=== PATIENT | female | born 1935 | race Caucasian/White ===

== ENCOUNTER 2016-09-16 09:30 | Emergency (ER) | payer MEDICARE, OTHER ==
--- NOTE | 2016-09-16 10:47 | ER Document Report ---
ED Medical Screen (RME) - General Chief Complaint: Anxiety Stated Complaint: POSSIBLE ANXIETY Time seen by provider: 10:46 Mode of Arrival: Ambulatory Information source: Patient Notes: 80-year-old female with a history of COPD is complaining of dry mouth, can't sit still, pain in both hands and feet, trouble breathing for one week. Her daughter dropped her off in the emergency room and went to work. The patient lives alone. PCP is Dr. Weinberg. Patient is unable to really explain why she is here or what's wrong with her. She thinks she might be anxious. She has a bag full medicine with her. TRAVEL OUTSIDE OF THE [place] IN LAST 30 DAYS: No - Related Data Allergies/Adverse Reactions: No Known Allergies Allergy (Verified 09/16/16 09:37) Past Medical History - Past Medical History Cardiac Medical History: Reports: Hx Coronary Artery Disease, Hx Hypercholesterolemia, Hx Hypertension, Hx Peripheral Vascular Disease Denies: Hx Heart Attack Pulmonary Medical History: Reports: Hx Asthma, Hx Bronchitis, Hx COPD, Hx Pneumonia Denies: Hx Tuberculosis Neurological Medical History: Reports: Hx Cerebrovascular Accident Endocrine Medical History: Denies: Hx Diabetes Mellitus Type 1, Hx Diabetes Mellitus Type 2 Renal/ Medical History: Reports: Hx Kidney Stones. Denies: Hx Peritoneal Dialysis GI Medical History: Reports: Hx Gastroesophageal Reflux Disease, Hx Irritable Bowel Musculoskeltal Medical History: Reports Hx Arthritis Psychiatric Medical History: Reports: Hx Depression Past Surgical History: Reports: Hx Appendectomy, Hx Cholecystectomy. Denies: Hx Pacemaker - Immunizations Hx Diphtheria, Pertussis, Tetanus Vaccination: No Physical Exam - Vital signs Vitals: Temp Pulse Resp BP Pulse Ox 97.4 F 49 L 16 147/55 H 96 09/16/16 09:39 09/16/16 09:39 09/16/16 09:39 09/16/16 09:39 09/16/16 09:39 Course - Vital Signs Vital signs: Temp Pulse Resp BP Pulse Ox 97.4 F 49 L 16 147/55 H 96 09/16/16 09:39 09/16/16 09:39 09/16/16 09:39 09/16/16 09:39 09/16/16 09:39 Doctor's Discharge - Discharge Instructions: Anxiety ([facility])
[2016-09-16 11:59] LABS: ABSOLUTE EOSINOPHILS # (AUTO) 0.2 10^3/uL (0.0-0.6); ABSOLUTE LYMPHOCYTES (AUTO) 1.6 10^3/uL (0.5-4.7); ABSOLUTE MONOCYTES (AUTO) 0.5 10^3/uL (0.1-1.4); BASOPHILS % (AUTO) 0.6 % (0-2); EOSINOPHILS % (AUTO) 3.7 % (0-6); HEMATOCRIT 40.2 % (36.0-47.0); HEMOGLOBIN 13.2 g/dL (12.0-15.5); HGB HCT DIFFERENCE -0.6; LYMPHOCYTES % (AUTO) 25.4 % (13-45); MEAN CORPUSCULAR HEMOGLOBIN 29.5 pg (27.0-33.4); MEAN CORPUSCULAR HGB CONC 32.9 g/dL (32.0-36.0); MEAN CORPUSCULAR VOLUME 90 fl (80-97); RED BLOOD COUNT 4.48 10^6/uL (3.72-5.28); RED CELL DISTRIBUTION WIDTH 14.5 % (11.5-14.0); SEGMENTED NEUTROPHILS % (AUTO) 62.3 % (42-78); WHITE BLOOD COUNT 6.4 10^3/uL (4.0-10.5)
[2016-09-16 12:09] LABS: APPEARANCE,URINE CLEAR; BILIRUBIN,URINE NEGATIVE (NEGATIVE); GLUCOSE, URINE NEGATIVE (NEGATIVE); KETONES,URINE NEGATIVE (NEGATIVE); LEUKOCYTE ESTERASE,URINE NEGATIVE (NEGATIVE); NITRITE,URINE NEGATIVE (NEGATIVE); PROTEIN,URINE NEGATIVE (NEGATIVE); URINE SPECIFIC GRAVITY 1.011; UROBILINOGEN,URINE NEGATIVE mg/dL (<2.0)
[2016-09-16 12:17] LABS: ALANINE AMINOTRANSFERASE 23 U/L (9-52); ALBUMIN 4.7 g/dL (3.5-5.0); ALCOHOL < 10 mg/dL (NONE DETECTED); ALKALINE PHOSPHATASE 92 U/L (38-126); ANION GAP 16 (5-19); ASPARTATE AMINO TRANSFERASE 21 U/L (14-36); BILIRUBIN,DIRECT 0.4 mg/dL (0.0-0.4); BILIRUBIN,TOTAL 0.9 mg/dL (0.2-1.3); BLOOD UREA NITROGEN 38 mg/dL (7-20); CARBON DIOXIDE 27 mmol/L (22-30); CHLORIDE 95 mmol/L (98-107); CREATINE KINASE 111 U/L (30-135); CREATININE RESULT 2.39 mg/dL (0.52-1.25); GLUCOSE 108 mg/dL (75-110); MAGNESIUM 1.8 mg/dL (1.6-2.3); TOTAL PROTEIN 8.1 g/dL (6.3-8.2)
[2016-09-16 12:24] LABS: URINE BARBITURATES SCREEN NEGATIVE; URINE METHADONE SCREEN NEGATIVE; URINE OPIATES LOW UNCONFIRMED POSITIVE; URINE PHENCYCLIDINE SCREEN NEGATIVE
[2016-09-16 12:44] LABS: TROPONIN I < 0.012 ng/mL
--- NOTE | 2016-09-16 13:46 | ER Document Report ---
ED General - General Mode of Arrival: Ambulatory Information source: Patient TRAVEL OUTSIDE OF THE [place] IN LAST 30 DAYS: No - HPI Patient complains to provider of: "Having trouble living" Onset: Other - few days ago Associated symptoms: Other - see notes above <LISA FALK - Last Filed: 09/16/16 14:15> <CHARLY GRIMM - Last Filed: 10/05/16 15:54> - General Chief Complaint: Anxiety Stated Complaint: POSSIBLE ANXIETY Notes: 80 year old female with history of anxiety and depression presents to the ED complaining that she feels like "something is terribly wrong" which stated earlier this week. Patient reports that she has been "having trouble living" and "feels like dying". Patient has brought her medications to the ED and has 5 bottles of Ativan, 2 of Metoprolol, 2 of Symbalta, 1 of Xanax, 1 of Ambien, 1 of [place], 1 of amitriptyline, and 1 of hydralazine Patient states that she has been taking her medications PRN and tells her primary care provider that they do not help when attending appointments. Patient reports that she doesn't take her pills to her primary care provider, and that she is prescribed new medication when telling them that her current medications are not working. Patient reports that she doesn't take her medications regularly because she is having trouble organizing them and is scared. Patient does state that she takes Ambien and hydralazine daily. (LISA FALK) - Related Data Allergies/Adverse Reactions: No Known Allergies Allergy (Verified 09/16/16 09:37) Past Medical History - General Information source: Patient - Social History Smoking Status: Former Smoker Chew tobacco use (# tins/day): No Drug Abuse: None Family History: Reviewed & Not Pertinent Patient has suicidal ideation: No Patient has homicidal ideation: No - Past Medical History Cardiac Medical History: Reports: Hx Coronary Artery Disease, Hx Hypercholesterolemia, Hx Hypertension, Hx Peripheral Vascular Disease Pulmonary Medical History: Reports: Hx Asthma, Hx Bronchitis, Hx COPD, Hx Pneumonia Neurological Medical History: Reports: Hx Cerebrovascular Accident Renal/ Medical History: Reports: Hx Kidney Stones GI Medical History: Reports: Hx Gastroesophageal Reflux Disease, Hx Irritable Bowel Musculoskeltal Medical History: Reports Hx Arthritis Psychiatric Medical History: Reports: Hx Depression Past Surgical History: Reports: Hx Appendectomy, Hx Cholecystectomy. Denies: Hx Pacemaker - Immunizations Hx Diphtheria, Pertussis, Tetanus Vaccination: No Hx Pneumococcal Vaccination: 05/28/09 <LISA FALK - Last Filed: 09/16/16 14:15> Review of Systems - Review of Systems Constitutional: No symptoms reported EENT: No symptoms reported Cardiovascular: No symptoms reported Respiratory: No symptoms reported Gastrointestinal: No symptoms reported Genitourinary: No symptoms reported Female Genitourinary: No symptoms reported Musculoskeletal: No symptoms reported Skin: No symptoms reported Hematologic/Lymphatic: No symptoms reported Neurological/Psychological: See HPI, Confusion -: Yes All other systems reviewed and negative <LISA FALK - Last Filed: 09/16/16 14:15> Physical Exam - General General appearance: Alert In distress: None - HEENT Head: Normocephalic, Atraumatic Eyes: Normal Extraocular movements intact: Yes Pupils: PERRL - Respiratory Respiratory status: No respiratory distress Breath sounds: Normal - Cardiovascular Rhythm: Regular Heart sounds: Normal auscultation - Abdominal Inspection: Normal Distension: No distension Tenderness: Nontender - Back Back: Normal - Extremities General upper extremity: Normal inspection, Normal ROM General lower extremity: Normal inspection, Normal ROM - Neurological Neuro grossly intact: Yes Cognition: Normal Orientation: AAOx4 [place] Coma Scale Eye Opening: Spontaneous [place] Coma Scale Verbal: Oriented [place] Coma Scale Motor: Obeys Commands [place] Coma Scale Total: 15 Speech: Normal - Psychological Associated symptoms: Normal affect, Normal mood - Skin Skin Temperature: Warm Skin Moisture: Dry Skin Color: Normal <LISA FALK - Last Filed: 09/16/16 14:15> Course - Laboratory Result Diagrams: 09/16/16 10:56 09/16/16 10:56 <LISA FALK - Last Filed: 09/16/16 14:15> - Laboratory Result Diagrams: 09/16/16 10:56 09/16/16 10:56 <CHARLY GRIMM - Last Filed: 10/05/16 15:54> - Re-evaluation Re-evalutation: 09/16/16 14:58 Patient presents emergency Department anxious. Upon serial assessments talking with the patient and her daughter she has numerous medications at the bedside she has 6 bottles of Ativan bottle of Xanax and Ambien in multiple bottles of Elavil.. She states that for the last week she hasn't taken her medications but once or twice she so overwhelmed with all medication she doesn't know which ones to take is afraid of mixing them. She is of sound mind and judgment negative acute medical screening examination not suicidal or homicidal. After reviewing her medications with her and her daughter there were some numerous medications that were overlapping each other if she were taking them all together she would have some serious respiratory depression and compromised I went through with her daughter and told her which one she should be taking. Gave her low-dose Ativan here which she did very well with recommended she does not take Xanax because its addicting recommend she does not take Ambien. Patient reports falling after taken Ambien multiple times also reports going down stairs in her house to make food not finding until the next morning she is concerned she would've burn the house down. Ambien is notorious for all of these medications and in my opinion should not be taken an elderly population. I told her and her daughter that she's not to take them any longer. The primary care physician's take her medications with her and discussed reasons for ED return sooner (CHARLY GRIMM) - Vital Signs Vital signs: Temp Pulse Resp BP Pulse Ox 97.4 F 54 L 14 159/75 H 98 09/16/16 09:39 09/16/16 12:55 09/16/16 14:02 09/16/16 14:02 09/16/16 14:02 - Laboratory Laboratory results interpreted by me: 09/16/16 09/16/16 09/16/16 10:56 10:56 11:24 RDW 14.5 H Chloride 95 L BUN 38 H Creatinine 2.39 H Est GFR ( Amer) 24 L Est GFR (Non-Af Amer) 20 L POC Glucose 111 H Discharge <LISA FALK - Last Filed: 09/16/16 14:15> <CHARLY GRIMM - Last Filed: 10/05/16 15:54> - Discharge Clinical Impression: Anxiety Condition: Stable Disposition: HOME, SELF-CARE Instructions: Anxiety ([facility]) Additional Instructions: Anxiety The physician feels that some of your health problems are being caused by anxiety. Anxiety affects your health in many ways. Anxiety alone can cause palpitations, sweats, chest pains, abdominal pains, shortness of breath, and headaches. It contributes to ulcer disease, high blood pressure, irritable bowel syndrome, and has been shown to cause flare-ups of many other diseases. Anxiety is not a simple disorder to treat. If the anxiety is due to recent life stresses, you may simply need time to "work through" the changes. If the anxiety is due to an underlying unhappiness with yourself or due to psychiatric disturbance, professional help will be needed. Your physician can refer you for further help if needed. Anti-anxiety medication is occasionally given if the stress is acute or if you are having trouble sleeping. Chronic or frequent use of these medications is not a good idea because the body becomes reliant on it, preventing you from dealing with life's normal stresses. follow up with primary care physician in 2-3 days return for increasing worsening or new symptoms Marye Attestation: 10/05/16 15:53 i personally performed the services described in the documentation, reviewed the documentation recorded by the scribe in my presence and it accurately and completely records my words and actions (CHARLY GRIMM) Scribe Documentation - Scribe Written by Wesley:: Wesley Danielle, 09/16/2016 1425 acting as scribe for :: Aly <LISA FALK - Last Filed: 09/16/16 14:15>
[2016-09-16 15:36] VITALS: BP 159/75
--- NOTE | 2016-09-17 16:53 | EKG REPORT ---
SEVERITY:- ABNORMAL ECG - SINUS RHYTHM NONSPECIFIC T ABNORMALITIES, ANT-LAT LEADS : Confirmed by: Poppy Tomlin MD 17-Sep-2016 16:53:13
== END 2016-09-16 15:40 | disposition home or self-care (01) ==
LOC: ER 09:30
DX: F41.9 Anxiety disorder, unspecified (principal); F32.9 Major depressive disorder, single episode, unspecified; Z79.899 Other long term (current) drug therapy; Z87.891 Personal history of nicotine dependence
CPT/HCPCS: 36415; 70450; 71020; 80053; 80307; 81001; 82550; 82553; 82962; 83735; 84484; 85025; 87086; 93005; 93010; 99284

== ENCOUNTER → 2016-09-19 | Outpatient (CLI) | payer MEDICARE, OTHER | LOC: RAD 09:15 | PROVIDERS: ATTEND Family Medicine | DX: R16.0 Hepatomegaly, not elsewhere classified (principal) | CPT/HCPCS: 74176 ==

== ENCOUNTER → 2016-12-08 | Outpatient (CLI) | payer MEDICARE, OTHER ==
--- NOTE | 2016-12-08 10:31 | RADIOLOGY REPORT (SQ) ---
EXAM DESCRIPTION: CT CHEST WITHOUT COMPLETED DATE/TIME: 12/08/2016 10:07 am REASON FOR STUDY: HEMOPTYSIS R04.2 HEMOPTYSIS COMPARISON: None. TECHNIQUE: CT scan performed of the chest without intravenous contrast. Images reviewed with lung, soft tissue and bone windows. Reconstructed coronal and sagittal MPR images reviewed. All images st ored on PACS. All CT scanners at this facility use dose modulation, iterative reconstruction, and/or weight based d osing when appropriate to reduce radiation dose to as low as reasonably achievable (ALARA). [facility]: Dose Right [facility]: CareDose [facility]: Dose Right [facility]: Teradose 4D [facility]: [employer] RADIATION DOSE: Up-to-date CT equipment and radiation dose reduction techniques were employed. CTDIv ol: 4.1 mGy. DLP: 164 mGy-cm. mGy. LIMITATIONS: No technical limitations. FINDINGS: LUNGS AND PLEURA: Centrilobular emphysematous changes are present. There is a 6 mm subple ural nodule in the medial aspect of the right upper lobe on image 19 series 4. HILAR AND MEDIASTINAL STRUCTURES: No identified masses or abnormal nodes. No obvious aneurysm. HEART AND VASCULAR STRUCTURES: Aortic and coronary atherosclerosis is present. UPPER ABDOMEN: Intrarenal calcification is seen in the right kidney. A cyst is present on the left k idney. There is a 53 x 31 mm right renal cyst versus paraspinous mass. This is seen on image 67 ser ies 2. THYROID AND OTHER SOFT TISSUES: No masses. No adenopathy. BONES: Mild superior endplate compression changes are present at L1. HARDWARE: None in the chest. OTHER: No other significant findings. IMPRESSION: 1. Pulmonary emphysema as described. 2. There is a 6 mm subpleural nodule in the right upper lobe. 3. There is a possible right paraspinous mass. Consider abdomen CT without and with contrast. TECHNICAL DOCUMENTATION: JOB ID: [id number] Quality ID # [id number]: Final reports with documentation of one or more dose reduction techniques (e.g., Au tomated exposure control, adjustment of the mA and/or kV according to patient size, use of iterative reconstruction technique) 2010 [employer]- All Rights Reserved
== END ==
LOC: RAD 09:39
PROVIDERS: ATTEND Family Medicine
DX: R04.2 Hemoptysis (principal); J43.9 Emphysema, unspecified; R91.1 Solitary pulmonary nodule
CPT/HCPCS: 71250

== ENCOUNTER 2017-06-12 18:05 | Emergency (ER) | payer MEDICARE, OTHER ==
--- NOTE | 2017-06-12 18:48 | ER Document Report ---
ED Medical Screen (RME) - General Chief Complaint: Leg Pain Stated Complaint: LEFT LEG PAIN Time Seen by Provider: 06/12/17 18:42 Mode of Arrival: Wheelchair Information source: Patient Notes: 81 yo female c/o alternating leg pain (points to thighs), since when she fell. c/o pain throughout her body for a long time- and has seen multiple doctors for "pain" and they can't find anything wrong. PMH: HTN, 3rd stage renal disease, COPD,,depression/anxiety. She insisted last night that she wanted to come to the hospital to get xrays of legs and pelvis. Uses cane or walker. She wants to be free of pain and not of cancer, "I'm scared about dying". Her daughter thinks there is some dementia- which is going to be evaluated by dr corrales tomorrow. Non tender femur/tib/fib in PIT. TRAVEL OUTSIDE OF THE [place] IN LAST 30 DAYS: No - Related Data Allergies/Adverse Reactions: No Known Allergies Allergy (Verified 06/12/17 18:09) Past Medical History - Past Medical History Cardiac Medical History: Reports: Hx Coronary Artery Disease, Hx Hypercholesterolemia, Hx Hypertension, Hx Peripheral Vascular Disease Denies: Hx Heart Attack Pulmonary Medical History: Reports: Hx Asthma, Hx Bronchitis, Hx COPD, Hx Pneumonia Denies: Hx Tuberculosis Neurological Medical History: Reports: Hx Cerebrovascular Accident Endocrine Medical History: Denies: Hx Diabetes Mellitus Type 1, Hx Diabetes Mellitus Type 2 Renal/ Medical History: Reports: Hx Kidney Stones. Denies: Hx Peritoneal Dialysis GI Medical History: Reports: Hx Gastroesophageal Reflux Disease, Hx Irritable Bowel Musculoskeltal Medical History: Reports Hx Arthritis Psychiatric Medical History: Reports: Hx Depression Past Surgical History: Reports: Hx Appendectomy, Hx Cholecystectomy. Denies: Hx Pacemaker - Immunizations Hx Diphtheria, Pertussis, Tetanus Vaccination: No Physical Exam - Vital signs Vitals: Pulse BP Pulse Ox 79 207/93 H 96 06/12/17 18:13 06/12/17 18:13 06/12/17 18:13 Course - Vital Signs Vital signs: Temp Pulse Resp BP Pulse Ox 79 207/93 H 96 06/12/17 18:13 06/12/17 18:13 06/12/17 18:13
[2017-06-12 19:47] LABS: ABSOLUTE BASOPHILS # (AUTO) 0.1 10^3/uL (0.0-0.2); ABSOLUTE EOSINOPHILS # (AUTO) 0.1 10^3/uL (0.0-0.6); ABSOLUTE LYMPHOCYTES (AUTO) 1.2 10^3/uL (0.5-4.7); ABSOLUTE MONOCYTES (AUTO) 0.6 10^3/uL (0.1-1.4); ABSOLUTE NEUT (AUTO) 4.8 10^3/uL (1.7-8.2); HEMATOCRIT 42.4 % (36.0-47.0); HEMOGLOBIN 14.3 g/dL (12.0-15.5); LYMPHOCYTES % (AUTO) 17.7 % (13-45); MEAN CORPUSCULAR HEMOGLOBIN 29.9 pg (27.0-33.4); MEAN CORPUSCULAR HGB CONC 33.7 g/dL (32.0-36.0); MEAN CORPUSCULAR VOLUME 89 fl (80-97); MONOCYTES % (AUTO) 9.3 % (3-13); PLATELET COUNT 314 10^3/uL (150-450); RED BLOOD COUNT 4.76 10^6/uL (3.72-5.28); RED CELL DISTRIBUTION WIDTH 13.9 % (11.5-14.0); TOTAL CELLS COUNTED % (AUTO) 100 %; WHITE BLOOD COUNT 6.9 10^3/uL (4.0-10.5)
--- NOTE | 2017-06-12 20:11 | RADIOLOGY REPORT (SQ) ---
EXAM DESCRIPTION: L SPINE WHOLE COMPLETED DATE/TIME: 06/12/2017 7:34 pm REASON FOR STUDY: pelvis pain COMPARISON: None. NUMBER OF VIEWS: Five views including obliques. TECHNIQUE: AP, lateral, oblique, and sacral radiographic images acquired of the lumbar spine. LIMITATIONS: None. FINDINGS: Bones are osteopenic. Mild convex left scoliosis. Mild depression of the superior endpla te of L1. Mild degenerative changes. IMPRESSION: Compression deformity superior endplate L1 of uncertain chronicity. No obvious acute fr acture. TECHNICAL DOCUMENTATION: JOB ID: [id number] [employer]- All Rights Reserved
--- NOTE | 2017-06-12 20:13 | RADIOLOGY REPORT (SQ) ---
EXAM DESCRIPTION: PELVIS AP COMPLETED DATE/TIME: 06/12/2017 7:34 pm REASON FOR STUDY: pelvis pain COMPARISON: None. NUMBER OF VIEWS: One view TECHNIQUE: AP Pelvis LIMITATIONS: None. FINDINGS: Bones are osteopenic. There is an old fracture of the right inferior pubic ramus. No acu te fractures identified. IMPRESSION: No acute findings. TECHNICAL DOCUMENTATION: JOB ID: [id number] [employer]- All Rights Reserved
[2017-06-12 20:15] LABS: ALANINE AMINOTRANSFERASE 24 U/L (9-52); ALBUMIN 4.1 g/dL (3.5-5.0); ALKALINE PHOSPHATASE 155 U/L (38-126); ANION GAP 10 (5-19); ASPARTATE AMINO TRANSFERASE 16 U/L (14-36); BILIRUBIN,DIRECT 0.4 mg/dL (0.0-0.4); BILIRUBIN,TOTAL 0.7 mg/dL (0.2-1.3); BLOOD UREA NITROGEN 13 mg/dL (7-20); CALCIUM 9.8 mg/dL (8.4-10.2); CARBON DIOXIDE 31 mmol/L (22-30); CHLORIDE 97 mmol/L (98-107); GLUCOSE 121 mg/dL (75-110); MAGNESIUM 1.5 mg/dL (1.6-2.3); POTASSIUM 3.7 mmol/L (3.6-5.0); SODIUM 137.9 mmol/L (137-145); TOTAL PROTEIN 6.9 g/dL (6.3-8.2)
--- NOTE | 2017-06-12 20:48 | ER Document Report ---
ED General - General Chief Complaint: Leg Pain Stated Complaint: LEFT LEG PAIN Time Seen by Provider: 06/12/17 18:42 Mode of Arrival: Wheelchair Information source: Patient TRAVEL OUTSIDE OF THE [place] IN LAST 30 DAYS: No - HPI Notes: 81-year-old lady presented today for evaluation of groin pain as well as dysuria and urinary burning. Patient reported that she sustained a mechanical fall approximately around [place]. Patient did not hit her head or had loss of consciousness. Since then patient was ambulatory but complains of pain localized to the bilateral medial aspects of her thighs. Pain is worse with movement as well as changing position, described as achy, severity of symptoms is 6 out of 10. Patient has also been complaining of urinary burning and dysuria. Denies any fevers, chills, back pain, nausea or vomiting. - Related Data Allergies/Adverse Reactions: No Known Allergies Allergy (Verified 06/12/17 18:09) Past Medical History - General Information source: Patient - Social History Smoking Status: Never Smoker Chew tobacco use (# tins/day): No Frequency of alcohol use: None Drug Abuse: None Family History: Reviewed & Not Pertinent Patient has suicidal ideation: No Patient has homicidal ideation: No - Past Medical History Cardiac Medical History: Reports: Hx Coronary Artery Disease, Hx Hypercholesterolemia, Hx Hypertension, Hx Peripheral Vascular Disease Denies: Hx Heart Attack Pulmonary Medical History: Reports: Hx Asthma, Hx Bronchitis, Hx COPD, Hx Pneumonia Denies: Hx Tuberculosis Neurological Medical History: Reports: Hx Cerebrovascular Accident Endocrine Medical History: Denies: Hx Diabetes Mellitus Type 1, Hx Diabetes Mellitus Type 2 Renal/ Medical History: Reports: Hx Kidney Stones. Denies: Hx Peritoneal Dialysis GI Medical History: Reports: Hx Gastroesophageal Reflux Disease, Hx Irritable Bowel Musculoskeltal Medical History: Reports Hx Arthritis Psychiatric Medical History: Reports: Hx Depression Past Surgical History: Reports: Hx Appendectomy, Hx Cholecystectomy. Denies: Hx Pacemaker - Immunizations Hx Diphtheria, Pertussis, Tetanus Vaccination: No Hx Pneumococcal Vaccination: 05/28/09 Review of Systems - Review of Systems Notes: REVIEW OF SYSTEMS: CONSTITUTIONAL: -fevers, -chills EENT: -eye pain, -difficulty swallowing, -nasal congestion CARDIOVASCULAR: -chest pain, -syncope. RESPIRATORY: -cough, -SOB GASTROINTESTINAL: -abdominal pain, -nausea, -vomiting, -diarrhea GENITOURINARY: +dysuria, -hematuria MUSCULOSKELETAL: -back pain, -neck pain, + groin pain SKIN: -rash or skin lesions. HEMATOLOGIC: -easy bruising or bleeding. LYMPHATIC: -swollen, enlarged glands. NEUROLOGICAL: -altered mental status or loss of consciousness, -headache, - neurologic symptoms PSYCHIATRIC: -anxiety, -depression. ALL OTHER SYSTEMS REVIEWED AND NEGATIVE. Physical Exam - Vital signs Vitals: Pulse BP Pulse Ox 79 207/93 H 96 06/12/17 18:13 06/12/17 18:13 06/12/17 18:13 - Notes Notes: Reviewed vital signs and nursing note as charted by RN. CONSTITUTIONAL: Alert and oriented and responds appropriately to questions HEAD: Normocephalic; atraumatic EYES: PERRL; Conjunctivae clear, sclerae non-icteric ENT: normal nose; no rhinorrhea; dry mucous membranes; pharynx without lesions noted NECK: Supple without meningismus; non-tender; no cervical lymphadenopathy, no masses CARD: Regular rate and rhythm; no murmurs, no clicks, no rubs, no gallops; symmetric distal pulses RESP: Normal chest excursion without splinting or tachypnea; breath sounds clear and equal bilaterally ABD/GI: Normal bowel sounds; non-distended; soft, BACK: The back appears normal and is non-tender to palpation EXT: Bilateral lower extremities with dry skin, peeling, no deformity around bilateral hips, patient has no tenderness to palpation of bilateral hip bones, no pain with internal or external rotation of bilateral hips, DP and PT palpable , sensation is present in all the dermatomes of the lower extremities bilaterally SKIN: Normal color for age and race; warm; dry; good turgor; capillary refill < 2 seconds; no acute lesions noted NEURO: .Cranial nerves 3-12 intact. Motor strength 5/5 bilaterally. Sensation intact to touch bilaterally. No pronator drift. Finger to nose intact bilaterally PSYCH: The patient's mood and manner are appropriate. Grooming and personal hygiene are appropriate. Course - Re-evaluation Re-evalutation: 06/13/17 01:23 Patient is here for evaluation of groin pain status post fall since Differential diagnosis includes fracture, hip fracture, acute cystitis, dehydration We will obtain basic lab work including CBC, BMP, urinalysis We will obtain pelvis films Patient had lumbar films ordered from triage, unsure why, patient has no back pain whatsoever Reassess patient Reassessment in 2:30 AM Pelvis films without any acute fracture Lumbar films has mild compression fracture of L1, likely chronic in etiology given the patient has no back pain I discussed the results of imaging with patient and family, they agree with disposition planning Urinalysis with early acute cystitis, given her symptoms of dysuria and frequency will start patient on Macrobid Her groin pain is likely to be secondary to pulled groin or muscle tear, will start patient on muscle relaxers for her symptoms as well as Tylenol Discharge home with close PCP follow-up - Vital Signs Vital signs: Temp Pulse Resp BP Pulse Ox 97.6 F 89 18 128/74 H 96 06/12/17 22:56 06/12/17 22:56 06/12/17 18:51 06/12/17 22:56 06/12/17 22:56 - Laboratory Result Diagrams: 06/12/17 19:08 06/12/17 19:08 Laboratory results interpreted by me: 06/12/17 06/12/17 19:08 21:15 Chloride 97 L Carbon Dioxide 31 H Est GFR ( Amer) 53 L Est GFR (Non-Af Amer) 44 L Glucose 121 H Magnesium 1.5 L Alkaline Phosphatase 155 H Urine Protein 100 H Urine Ketones TRACE H Urine Bilirubin MODERATE H Urine Urobilinogen 2.0 H - Diagnostic Test Radiology reviewed: Pending, Image reviewed Radiology results interpreted by me: 06/12/17 22:38 Diagnostic report text EXAM DESCRIPTION: PELVIS AP COMPLETED DATE/TIME: 06/12/2017 7:34 pm REASON FOR STUDY: pelvis pain COMPARISON: None. NUMBER OF VIEWS: One view TECHNIQUE: AP Pelvis LIMITATIONS: None. FINDINGS: Bones are osteopenic. There is an old fracture of the right inferior pubic ramus. No acute fractures identified. IMPRESSION: No acute findings Discharge - Discharge Clinical Impression: Bilateral groin pain, UTI (urinary tract infection) Condition: Stable Disposition: HOME, SELF-CARE Instructions: Muscle Strain ([facility]), Urinary Tract Infection ([facility]) Additional Instructions: Your x-ray revealed small L1 compression deformity Given the fact that you not have any back pain, low suspicion for new fracture of your back Please take antibiotics as prescribed for urinary tract infection Please take muscle relaxers as well as Tylenol for your groin pain Please follow-up with your primary care physician Prescriptions: Methocarbamol [Robaxin 500 mg Tablet] 500 mg PO TID #30 tablet Nitrofurantoin Monohyd/M-Cryst [Macrobid 100 mg Capsule] 1 tab PO BID #20 capsule Referrals: MARYCRUZ BRANNON MD [Primary Care Provider] - Follow up as needed
[2017-06-12 21:44] LABS: APPEARANCE,URINE SLIGHTLY-CLOUDY; BILIRUBIN,URINE MODERATE (NEGATIVE); COLOR,URINE AMBER; GLUCOSE, URINE NEGATIVE (NEGATIVE); KETONES,URINE TRACE mg/dL (NEGATIVE); LEUKOCYTE ESTERASE,URINE NEGATIVE (NEGATIVE); NITRITE,URINE NEGATIVE (NEGATIVE); PROTEIN,URINE 100 mg/dL (NEGATIVE); URINE SPECIFIC GRAVITY 1.032
[2017-06-12 22:57] VITALS: BP 128/74
== END 2017-06-12 22:56 | disposition home or self-care (01) ==
LOC: ER 18:05
DX: N39.0 Urinary tract infection, site not specified (principal); R10.30 Lower abdominal pain, unspecified; M79.605 Pain in left leg; I25.10 Atherosclerotic heart disease of native coronary artery without angina pectoris; E78.00 Pure hypercholesterolemia, unspecified; I10 Essential (primary) hypertension; J44.9 Chronic obstructive pulmonary disease, unspecified; Z86.73 Personal history of transient ischemic attack (TIA), and cerebral infarction without residual deficits; Z87.442 Personal history of urinary calculi; Z90.49 Acquired absence of other specified parts of digestive tract
CPT/HCPCS: 36415; 51701; 72110; 72170; 80053; 81001; 82550; 82553; 83735; 85025; 87086; 99284

== ENCOUNTER → 2017-07-14 | Outpatient (CLI) | payer MEDICARE, OTHER ==
--- NOTE | 2017-07-14 13:05 | RADIOLOGY REPORT (SQ) ---
EXAM DESCRIPTION: CT CHEST WITHOUT COMPLETED DATE/TIME: 07/14/2017 11:39 am REASON FOR STUDY: SOLITARY PULMONARY NODULE R91.1 SOLITARY PULMONARY NODULE COMPARISON: None. TECHNIQUE: CT scan performed of the chest without intravenous contrast. Images reviewed with lung, soft tissue and bone windows. Reconstructed coronal and sagittal MPR images reviewed. All images st ored on PACS. All CT scanners at this facility use dose modulation, iterative reconstruction, and/or weight based d osing when appropriate to reduce radiation dose to as low as reasonably achievable (ALARA). [facility]: Dose Right [facility]: CareDose [facility]: Dose Right [facility]: Teradose 4D [facility]: Smart [employer] RADIATION DOSE: CT Rad equipment meets quality standard of care and radiation dose reduction techniq ues were employed. CTDIvol: 6.0 mGy. DLP: 244 mGy-cm. mGy. LIMITATIONS: No technical limitations. FINDINGS: LUNGS AND PLEURA: There is evidence of centrilobular emphysema. Fibrotic scarring in apic es. Stable 5 mm pleural-based pulmonary nodule medial right upper lobe unchanged (image number 9/ series 4.) HILAR AND MEDIASTINAL STRUCTURES: No identified masses or abnormal nodes. No obvious aneurysm. HEART AND VASCULAR STRUCTURES: Atherosclerotic coronary artery calcification. UPPER ABDOMEN: There is evidence of nonobstructing calculus upper pole right kidney. Renovascular ca lcification right kidney. The right kidney is displaced by right paraspinal mass. Cortical cyst upp er pole left kidney unchanged. Hiatal hernia. THYROID AND OTHER SOFT TISSUES: No abnormality seen. BONES: No significant finding. HARDWARE: None in the chest. OTHER: There is again evidence of a prominent right paraspinal mass. Considering scalloped erosive c hanges of the adjacent vertebra, neuroforaminal widening,, and changes posterior elements of L2 on th e right,follow-up with MRI of lumbar spine could be useful to exclude a neuroforaminal mass or schwan noma. IMPRESSION: 1. Stable pleural-based right upper lobe pulmonary nodule unchanged from 12/09/2015. Ac cording to the Fleischner criteria for follow-up of incidental pulmonary nodules 2017, considering th e size of the pulmonary nodule follow-up in 1 year is optional. 2. Prominent right paraspinal mass at the L2 level. Consider MRI lumbar spine to exclude schwannoma. TECHNICAL DOCUMENTATION: JOB ID: [id number] [facility] [place] Quality ID # [id number]: Final reports with documentation of one or more dose reduction techniques (e.g., Au tomated exposure control, adjustment of the mA and/or kV according to patient size, use of iterative reconstruction technique) 2010 [employer]- All Rights Reserved
== END ==
LOC: RAD 11:26
PROVIDERS: ATTEND Family Medicine
DX: R91.1 Solitary pulmonary nodule (principal)
CPT/HCPCS: 71250

== ENCOUNTER 2018-01-08 11:23 | Emergency (ER) | payer MEDICARE ==
--- NOTE | 2018-01-08 14:20 | ER Document Report ---
ED Medical Screen (RME) - General Chief Complaint: Altered Mental Status Stated Complaint: ALTERED MENTAL STATUS Time Seen by Provider: 01/08/18 14:12 TRAVEL OUTSIDE OF THE [place] IN LAST 30 DAYS: No - HPI Notes: 01/08/18 14:19 Patient with history of dementia according to family members more combative not listening LC declining as far as daily activities unable to ambulate and take care of herself. PCP is Dr. Skinner. - Related Data Allergies/Adverse Reactions: No Known Allergies Allergy (Verified 01/08/18 14:07) Past Medical History - Social History Chew tobacco use (# tins/day): No Frequency of alcohol use: None Drug Abuse: None - Past Medical History Cardiac Medical History: Reports: Hx Coronary Artery Disease, Hx Hypercholesterolemia, Hx Hypertension, Hx Peripheral Vascular Disease Denies: Hx Heart Attack Pulmonary Medical History: Reports: Hx Asthma, Hx Bronchitis, Hx COPD, Hx Pneumonia Denies: Hx Tuberculosis Neurological Medical History: Reports: Hx Cerebrovascular Accident Endocrine Medical History: Denies: Hx Diabetes Mellitus Type 1, Hx Diabetes Mellitus Type 2 Renal/ Medical History: Reports: Hx Kidney Stones. Denies: Hx Peritoneal Dialysis GI Medical History: Reports: Hx Gastroesophageal Reflux Disease, Hx Irritable Bowel Musculoskeltal Medical History: Reports Hx Arthritis Psychiatric Medical History: Reports: Hx Depression Past Surgical History: Reports: Hx Appendectomy, Hx Cholecystectomy. Denies: Hx Pacemaker - Immunizations Hx Diphtheria, Pertussis, Tetanus Vaccination: No Physical Exam - General General appearance: Appears well In distress: None - Respiratory Respiratory status: No respiratory distress Chest status: Nontender Breath sounds: Normal Chest palpation: Normal Doctor's Discharge - Discharge Referrals: MARYCRUZ BRANNON MD [Primary Care Provider] - Follow up as needed
[2018-01-08 15:14] LABS: ABSOLUTE BASOPHILS # (AUTO) 0.1 10^3/uL (0.0-0.2); ABSOLUTE EOSINOPHILS # (AUTO) 0.1 10^3/uL (0.0-0.6); ABSOLUTE LYMPHOCYTES (AUTO) 1.7 10^3/uL (0.5-4.7); ABSOLUTE MONOCYTES (AUTO) 0.6 10^3/uL (0.1-1.4); ABSOLUTE NEUT (AUTO) 4.6 10^3/uL (1.7-8.2); BASOPHILS % (AUTO) 1.5 % (0-2); EOSINOPHILS % (AUTO) 0.9 % (0-6); HEMATOCRIT 45.1 % (36.0-47.0); HEMOGLOBIN 14.9 g/dL (12.0-15.5); LYMPHOCYTES % (AUTO) 24.5 % (13-45); MEAN CORPUSCULAR HEMOGLOBIN 29.6 pg (27.0-33.4); MEAN CORPUSCULAR VOLUME 90 fl (80-97); MONOCYTES % (AUTO) 8.1 % (3-13); PLATELET COUNT 285 10^3/uL (150-450); RED BLOOD COUNT 5.03 10^6/uL (3.72-5.28); RED CELL DISTRIBUTION WIDTH 14.6 % (11.5-14.0); TOTAL CELLS COUNTED % (AUTO) 100 %; WHITE BLOOD COUNT 7.1 10^3/uL (4.0-10.5)
[2018-01-08 15:32] LABS: ALANINE AMINOTRANSFERASE 17 U/L (9-52); ALBUMIN 3.9 g/dL (3.5-5.0); ALKALINE PHOSPHATASE 62 U/L (38-126); ANION GAP 14 (5-19); ASPARTATE AMINO TRANSFERASE 17 U/L (14-36); BILIRUBIN,DIRECT 0.4 mg/dL (0.0-0.4); BILIRUBIN,TOTAL 0.8 mg/dL (0.2-1.3); BLOOD UREA NITROGEN 18 mg/dL (7-20); CALCIUM 9.4 mg/dL (8.4-10.2); CARBON DIOXIDE 26 mmol/L (22-30); CHLORIDE 101 mmol/L (98-107); GLUCOSE 141 mg/dL (75-110); LIPASE 70.8 U/L (23-300); POTASSIUM 3.3 mmol/L (3.6-5.0); SODIUM 140.8 mmol/L (137-145); TOTAL PROTEIN 6.5 g/dL (6.3-8.2)
--- NOTE | 2018-01-08 16:10 | PSYCHOLOGICAL NOTE ---
Psych Note - Psych Note Psych Note: Reason for Consult: medication recommendations Patient with history of dementia according to family members more combative not listening LC declining as far as daily activities unable to ambulate and take care of herself. Patient had a MRI conducted on 04/13/2017 indicating diffuse moderate white matter disease old right occipital cortical and subcortical infarct Patient had a head CT conducted on 09/16/2016 indicating chronic changes of atrophy and microvascular ischemia Medication recommendations per [facility]'s contracted psychiatrist Dr. Paulette BETANCOURT are as follows 1. Decrease Cymbalta to 60 mg daily for 5 days then discontinue 2. Depakote 500mg twice daily 3. BuSpar 5 mg every morning and 10 mg nightly Diagnosis 799.59 (R41.9) unspecified neurocognitive disorder Impression/Plan: Patient is cleared from acute psychiatric services. Medication recommendations have been provided. treating physicians are asked to consider avoiding prescribing benzodiazepines (e.g. Ativan, Xanax, Valium, Klonopin), antipsychotics (e.g. Haldol, Geodon, Zyprexa, Seroquel), some sleep aids (e.g Ambien, Lunesta, Sonata), narcotic pain medications, and high-dose steroids (prednisone) as these have been known to cause and/or increased symptoms of aggression, psychosis, and/or paranoia in patients with neurodegenerative processes such as dementia, Alzheimer's disease, traumatic brain injury, etc. If new concerns arise please reconsult. Dr. Mcfarlane was consulted and the care management this patient; attending physician is agreement with recommendations and disposition.
== END 2018-01-08 18:07 | disposition left against medical advice (07) ==
LOC: ER 11:23
DX: F03.91 Unspecified dementia, unspecified severity, with behavioral disturbance (principal); I25.10 Atherosclerotic heart disease of native coronary artery without angina pectoris; I10 Essential (primary) hypertension; J44.9 Chronic obstructive pulmonary disease, unspecified; Z53.20 Procedure and treatment not carried out because of patient's decision for unspecified reasons
CPT/HCPCS: 36415; 80053; 83690; 85025; 99281

== ENCOUNTER 2018-01-09 16:30 | Inpatient (IN) | payer MEDICARE, OTHER ==
[2018-01-09] MEDS ORDERED: ONDANSETRON HCL INJ/PF 4 MG/2 ML SDV IV PRN (17:35)
[2018-01-09] MEDS ORDERED: ACETAMINOPHEN 325 MG TABLET PO PRN (17:35)
[2018-01-09] MEDS ORDERED: IPRATROPIUM/ALBUTEROL 0.5-2.5 MG/3 ML AMPUL NEB PRN (17:35)
[2018-01-09] MEDS ORDERED: POLYETHYLENE GLYCOL 3350 POWDER 17 GM/1 PACKET PO PRN (17:50)
--- NOTE | 2018-01-09 18:22 | RADIOLOGY REPORT (SQ) ---
EXAM DESCRIPTION: CHEST SINGLE VIEW COMPLETED DATE/TIME: 01/09/2018 6:09 pm REASON FOR STUDY: evaluation for PNA COMPARISON: Chest x-ray 09/16/2016. CT 07/14/2017 EXAM PARAMETERS: NUMBER OF VIEWS: One view. TECHNIQUE: Single frontal radiographic view of the chest acquired. RADIATION DOSE: NA LIMITATIONS: None. FINDINGS: LUNGS AND PLEURA: The lungs are hyperexpanded. No infiltrate or effusion. No mass is see n. MEDIASTINUM AND HILAR STRUCTURES: No masses. Contour normal. HEART AND VASCULAR STRUCTURES: Heart normal in size. Normal vasculature. BONES: No acute findings. HARDWARE: None in the chest. OTHER: No other significant finding. IMPRESSION: Chronic lung changes with no acute cardiopulmonary disease. TECHNICAL DOCUMENTATION: JOB ID: [id number] [employer]- All Rights Reserved Reading location - IP/workstation name: [email or web address]
[2018-01-09] MEDS ORDERED: LABETALOL HCL INJ 20 MG/4 ML DISP.SYRIN IV PRN (18:23)
[2018-01-09] MEDS ORDERED: HYDRALAZINE HCL INJ/PF 20 MG/1 ML SDV ONE (18:35)
--- NOTE | 2018-01-09 19:44 | PDOC H&P ---
History of Present Illness Admission Date/PCP: 01/09/18 16:30 MARYCRUZ BRANNON MD History of Present Illness: MOY MELCHOR is a 82 year old female with a progressive mental status decline over the past 6 weeks, per her daughter at the bedside who provides care for her in the home. She has a past medical history that includes dementia, CVA, possible history of UTI in the past , chronic back pain and arthritis. Patient was recently evaluated here in the emergency department on the of this month and it was thought at that time that she may have medications contributing to her altered mental status. Psychiatry evaluated her and recommended starting buspirone, Depakote and decreasing her Cymbalta. Patient is on buprenorphine for chronic pain picture. Patient has been described by her daughter at the bedside as a 6 stairstep decline in her mental status. She states that over the last 6 weeks she has become more combative and has significant difficulties in going to the bathroom. Has difficulties in self bathing. Prior to the recent recommendations of medication changes, patient was not changed on her medication per her family. Patient is displayed a significant fear of falling recently, and describes a wobbling gait inside the home. Describes her toes and feet hurting with her arthritic pain. This fear of falling has led her to not ambulating much according to the daughter at the bedside. The daughter describes her mentation as somewhat delusional. Past Medical History Cardiac Medical History: Reports: Coronary Artery Disease, Hyperlipidema, Hypertension, Peripheral Vascular Disease Denies: Myocardial Infarction Pulmonary Medical History: Reports: Asthma, Bronchitis, Chronic Obstructive Pulmonary Disease (COPD), Pneumonia Denies: Tuberculosis Neurological Medical History: Reports: Ischemic CVA Endocrine Medical History: Denies: Diabetes Mellitus Type 1, Diabetes Mellitus Type 2 GI Medical History: Reports: Gastroesophageal Reflux Disease Musculoskeltal Medical History: Reports: Arthritis Psychiatric Medical History: Reports: Dementia, Depression Past Surgical History Past Surgical History: Reports: Appendectomy, Cholecystectomy Denies: Pacemaker Social History Information Source: Patient, POA - Power of [employer] Lives with: Family Smoking Status: Former Smoker Number of Years Smokin - Quit 7 years ago. Last Time Smoked: 7 years ago. Frequency of Alcohol Use: None Hx Recreational Drug Use: No Drugs: None Hx Prescription Drug Abuse: No Past Social History Note: Quit drinking 37 years ago. States that she did have a period of heavy drinking. Family History Family History: Reviewed & Not Pertinent Family History: Father and mother described as heavy drinkers. Parental Family History Reviewed: Yes Children Family History Reviewed: No Sibling(s) Family History Reviewed.: Yes Medication/Allergy Home Medications: Buprenorphine [Butrans] 7.5 mcg TOP SA@1000 01/09/18 Cilostazol 50 mg PO Q12 01/09/18 Duloxetine HCl [Cymbalta] 60 mg PO Q12 01/09/18 Ergocalciferol (Vitamin D2) [Drisdol 50,000 unit (1.25MG) Capsule] 50,000 unit PO FR@1000 01/09/18 Hydrocodone/Acetaminophen [Hydrocodone-Acetamin 7.5-325] 1 tab PO Q6HP PRN 01/09 Lorazepam [Ativan 0.5 mg Tablet] 0.5 mg PO Q8HP PRN 01/09/18 Losartan Potassium [Cozaar 100 mg Tablet] 100 mg PO DAILY 01/09/18 Metoprolol Succinate [Toprol XL 100 mg Tablet] 100 mg PO DAILY 01/09/18 Omeprazole 20 mg PO WSUPPER 01/09/18 Paricalcitol [Zemplar 1 Mcg Capsule] 1 mcg PO DAILY 01/09/18 Zolpidem Tartrate [Ambien] 10 mg PO HSP PRN 01/09/18 Allergies/Adverse Reactions: No Known Allergies Allergy (Verified 01/08/18 14:07) Review of Systems Constitutional: ABSENT: fever(s), headache(s), weight loss Eyes: ABSENT: visual disturbances Ears: ABSENT: hearing changes Nose, Mouth, and Throat: ABSENT: mouth pain Cardiovascular: ABSENT: edema, orthropnea Respiratory: ABSENT: dyspnea, hemoptysis Gastrointestinal: ABSENT: abdominal pain, diarrhea, dysphagia, heartburn, nausea , vomiting Genitourinary: ABSENT: dysuria, hematuria Musculoskeletal: ABSENT: deformity, joint swelling Integumentary: ABSENT: lesions, pruritus Neurological: PRESENT: frequent falls. ABSENT: focal weakness, syncope Psychiatric: ABSENT: hallucinations, homidical ideation Endocrine: ABSENT: heat intolerance, polydipsia Hematologic/Lymphatic: ABSENT: easy bruising Allergic/Immunologic: ABSENT: seasonal rhinorrhea Physical Exam General appearance: PRESENT: no acute distress, thin Head exam: PRESENT: atraumatic, normocephalic Eye exam: PRESENT: EOMI, PERRLA. ABSENT: conjunctival injection, nystagmus Ear exam: PRESENT: normal external ear exam. ABSENT: bleeding Mouth exam: PRESENT: moist. ABSENT: dry mucosa Throat exam: ABSENT: post pharyngeal erythema, tonsillar exudate Neck exam: ABSENT: carotid bruit, JVD, tenderness, thyromegaly Respiratory exam: ABSENT: accessory muscle use, rales, rhonchi, wheezes Cardiovascular exam: PRESENT: RRR, +S1, +S2 Pulses: PRESENT: normal carotid pulses Vascular exam: PRESENT: normal capillary refill. ABSENT: pallor GI/Abdominal exam: PRESENT: soft. ABSENT: ascites, mass, rigid, tenderness Extremities exam: ABSENT: calf tenderness, joint swelling Musculoskeletal exam: PRESENT: full ROM. ABSENT: ambulatory Neurological exam: PRESENT: alert, oriented to person, oriented to place, CN II- XII grossly intact. ABSENT: oriented to time, oriented to situation Psychiatric exam: ABSENT: agitated, anxious Focused psych exam: ABSENT: catatonic, paranoid Skin exam: ABSENT: abrasion, mottled Assessment & Plan - Diagnosis (1) Acute encephalopathy Is this a current diagnosis for this admission?: Yes Plan: CT had ordered now. Every 4 hours neuro checks. Unfortunately patient had elevated blood pressure of 219/90. Will evaluate for stroke. Her significant smoking history and stairstep decline and dementia is possibly consistent with a vascular dementia picture. Patient has no focal deficits on examination. We will check ultrasound of her carotids. If CT head is negative for hemorrhagic stroke, will progress to MRI of brain. Check lipid panel in the a.m. Holding aspirin at present. Will follow psychiatry's recommendations for Depakote and Busparon, and wean Cymbalta (2) Chronic pain Is this a current diagnosis for this admission?: Yes Plan: change chronic pain therapy to Percocet. (3) Hypertension Is this a current diagnosis for this admission?: Yes Plan: giving Hydralazine and labetalol with use parameters. restarting partial doses of HTN medications. Pending CT head results. (4) Hypercalcemia Is this a current diagnosis for this admission?: Yes Plan: has a history of primary hyperparathyroidism on paricalcitol. check ionized calcium level and continue home medication - Time Time Spent: 50 to 70 Minutes - Inpatient Certification Based on my medical assessment, after consideration of the patient's comorbidities, presenting symptoms, or acuity I expect that the services needed warrant INPATIENT care.: Yes I certify that my determination is in accordance with my understanding of Medicare's requirements for reasonable and necessary INPATIENT services [42 CFR 412.3e].: Yes Medical Necessity: Need Close Monitoring Due to Risk of Patient Decompensation
[2018-01-09] MEDS: LOSARTAN POTASSIUM 50 MG TABLET PO SCH (19:50)
[2018-01-09] MEDS: TIOTROPIUM BROMIDE DPI 5 CAP/KIT (18 MCG/CAP) IH SCH (19:50)
[2018-01-09 20:09] LABS: FREE T4 (FREE THYROXINE) 1.61 ng/dL (0.78-2.19)
[2018-01-09 20:23] LABS: THYROID STIMULATING HORMONE 1.16 uIU/mL (0.47-4.68)
--- NOTE | 2018-01-09 20:23 | RADIOLOGY REPORT (SQ) ---
EXAM DESCRIPTION: CT HEAD WITHOUT COMPLETED DATE/TIME: 01/09/2018 8:15 pm REASON FOR STUDY: AMS COMPARISON: 09/16/2016 TECHNIQUE: Axial images acquired through the brain without intravenous contrast. Images reviewed wi th bone, brain and subdural windows. Additional sagittal and coronal reconstructions were generated. Images stored on PACS. All CT scanners at this facility use dose modulation, iterative reconstruction, and/or weight based d osing when appropriate to reduce radiation dose to as low as reasonably achievable (ALARA). [facility]: Dose Right [facility]: CareDose [facility]: Dose Right [facility]: Teradose 4D [facility]: Smart [employer] RADIATION DOSE: CT Rad equipment meets quality standard of care and radiation dose reduction techniq ues were employed. CTDIvol: 55.2 mGy. DLP: 1001 mGy-cm.mGy. LIMITATIONS: None. FINDINGS: VENTRICLES: Prominent. CEREBRUM: No masses. No hemorrhage. No midline shift. Areas of low density in the white matter mos t likely due to chronic micro-vascular ischemic change. No evidence for acute infarction. CEREBELLUM: No masses. No hemorrhage. No alteration of density. No evidence for acute infarction. EXTRAAXIAL SPACES: Age-related involutional change. No fluid collections. No masses. ORBITS AND GLOBE: No intra- or extraconal masses. Normal contour of globe without masses. CALVARIUM: No fracture. PARANASAL SINUSES: No fluid or mucosal thickening. SOFT TISSUES: No mass or hematoma. OTHER: No other significant finding. IMPRESSION: CHRONIC CHANGES OF ATROPHY AND MICROVASCULAR ISCHEMIA. NO ACUTE PROCESS. EVIDENCE OF ACUTE STROKE: NO. TECHNICAL DOCUMENTATION: JOB ID: [id number] Quality ID # [id number]: Final reports with documentation of one or more dose reduction techniques (e.g., Au tomated exposure control, adjustment of the mA and/or kV according to patient size, use of iterative reconstruction technique) 2010 [email or web address]- All Rights Reserved Reading location - IP/workstation name: [email or web address]
[2018-01-09] MEDS: HALOPERIDOL LACTATE INJ 5 MG/1 ML VIAL IV PRN (20:57)
[2018-01-09] MEDS: ATORVASTATIN CALCIUM 40 MG TABLET PO SCH (21:04)
[2018-01-09] MEDS: METOPROLOL TARTRATE 25 MG TABLET PO SCH (21:04)
[2018-01-09] MEDS: DULOXETINE HCL 30 MG CAPSULE.DR PO SCH (21:04)
[2018-01-09] MEDS: BUSPIRONE HCL 10 MG TABLET PO SCH (21:04)
[2018-01-09] MEDS ORDERED: LOSARTAN POTASSIUM 25 MG TABLET PO SCH (22:00)
[2018-01-09] MEDS: LORAZEPAM 0.5 MG TABLET PO PRN (22:27)
[2018-01-09] MEDS: DIVALPROEX SODIUM 500 MG TAB.SR.24H PO SCH (22:27)
[2018-01-09] MEDS: FLUTICASONE/SALMETEROL DISKUS 250-50 MCG/DOSE IH SCH (22:27)
[2018-01-09 23:38] LABS: APPEARANCE,URINE CLOUDY; BILIRUBIN,URINE NEGATIVE (NEGATIVE); COLOR,URINE AMBER; GLUCOSE, URINE NEGATIVE (NEGATIVE); KETONES,URINE NEGATIVE (NEGATIVE); LEUKOCYTE ESTERASE,URINE MODERATE (NEGATIVE); NITRITE,URINE POSITIVE (NEGATIVE); PROTEIN,URINE NEGATIVE (NEGATIVE); URINE SPECIFIC GRAVITY 1.013
[2018-01-10] MEDS: HYDRALAZINE HCL INJ/PF 20 MG/1 ML SDV IV PRN (00:05)
[2018-01-10] MEDS: HALOPERIDOL LACTATE INJ 5 MG/1 ML VIAL IV PRN ×2 (01:02→21:04)
--- NOTE | 2018-01-10 07:33 | EKG REPORT ---
SEVERITY:- ABNORMAL ECG - SINUS RHYTHM ATRIAL PREMATURE COMPLEX LVH WITH SECONDARY REPOLARIZATION ABNORMALITY : Confirmed by: Hiram Clifford MD 10-Jan-2018 07:32:23
[2018-01-10] MEDS ORDERED: CEFTRIAXONE 2 GM/D5W RTU 2 GM/50 ML RTUPB IV SCH (08:00)
[2018-01-10] MEDS ORDERED: CEFTRIAXONE SODIUM 2,000 MG in DEXTROSE 5%-WATER 100 ML IV SCH (08:00)
[2018-01-10 08:39] LABS: ABSOLUTE BASOPHILS # (AUTO) 0.1 10^3/uL (0.0-0.2); ABSOLUTE LYMPHOCYTES (AUTO) 1.7 10^3/uL (0.5-4.7); ABSOLUTE MONOCYTES (AUTO) 0.7 10^3/uL (0.1-1.4); ABSOLUTE NEUT (AUTO) 5.8 10^3/uL (1.7-8.2); BASOPHILS % (AUTO) 0.7 % (0-2); EOSINOPHILS % (AUTO) 0.4 % (0-6); HEMATOCRIT 40.6 % (36.0-47.0); HEMOGLOBIN 13.9 g/dL (12.0-15.5); MEAN CORPUSCULAR HEMOGLOBIN 30.2 pg (27.0-33.4); MEAN CORPUSCULAR HGB CONC 34.2 g/dL (32.0-36.0); MEAN CORPUSCULAR VOLUME 88 fl (80-97); MONOCYTES % (AUTO) 8.1 % (3-13); PLATELET COUNT 264 10^3/uL (150-450); RED CELL DISTRIBUTION WIDTH 14.3 % (11.5-14.0); SEGMENTED NEUTROPHILS % (AUTO) 69.8 % (42-78); TOTAL CELLS COUNTED % (AUTO) 100 %; WHITE BLOOD COUNT 8.3 10^3/uL (4.0-10.5)
[2018-01-10 08:57] LABS: ALANINE AMINOTRANSFERASE 21 U/L (9-52); ALBUMIN 3.5 g/dL (3.5-5.0); ALKALINE PHOSPHATASE 60 U/L (38-126); ANION GAP 14 (5-19); ASPARTATE AMINO TRANSFERASE 23 U/L (14-36); BILIRUBIN,DIRECT 0.5 mg/dL (0.0-0.4); BILIRUBIN,TOTAL 1.1 mg/dL (0.2-1.3); BLOOD UREA NITROGEN 18 mg/dL (7-20); CALCIUM 9.4 mg/dL (8.4-10.2); CARBON DIOXIDE 24 mmol/L (22-30); CHLORIDE 101 mmol/L (98-107); CHOLESTEROL 157.09 mg/dL (0-200); GLUCOSE 102 mg/dL (75-110); POTASSIUM 3.2 mmol/L (3.6-5.0); SODIUM 138.9 mmol/L (137-145); TOTAL PROTEIN 6.4 g/dL (6.3-8.2); TRIGLYCERIDES 111 mg/dL (<150)
[2018-01-10] MEDS: CEFTRIAXONE SODIUM 2,000 MG in NORMAL SALINE 100 ML IV SCH (09:04)
[2018-01-10 09:09] LABS: DIRECT LDL 80 mg/dL (<100)
[2018-01-10] MEDS: DULOXETINE HCL 30 MG CAPSULE.DR PO SCH ×2 (11:45→21:04)
[2018-01-10] MEDS: METOPROLOL TARTRATE 25 MG TABLET PO SCH ×2 (11:45→21:05)
[2018-01-10] MEDS: LOSARTAN POTASSIUM 50 MG TABLET PO SCH ×2 (11:45→21:15)
[2018-01-10] MEDS: BUSPIRONE HCL 10 MG TABLET PO SCH ×2 (11:46→21:05)
[2018-01-10] MEDS: DIVALPROEX SODIUM 500 MG TAB.SR.24H PO SCH ×3 (11:48→21:16)
[2018-01-10] MEDS ORDERED: HALOPERIDOL LACTATE INJ 5 MG/1 ML VIAL IV ONE (12:00)
[2018-01-10] MEDS ORDERED: POTASSIUM CHLORIDE 10 MEQ CAPSULE.ER PO ONE (12:00)
[2018-01-10] MEDS: DOCUSATE SODIUM 100 MG CAPSULE PO SCH (12:07)
[2018-01-10] MEDS ORDERED: MAGNESIUM SULFATE INJ 8 MEQ/2 ML IV ONE (12:26)
[2018-01-10] MEDS ORDERED: MAGNESIUM SULFATE/D5W 1 GM/100 ML RTUPB IV ONE (13:00)
--- NOTE | 2018-01-10 13:57 | RADIOLOGY REPORT (SQ) ---
EXAM DESCRIPTION: MRI HEAD WITHOUT COMPLETED DATE/TIME: 01/10/2018 12:59 pm REASON FOR STUDY: evaluation of possible CVA COMPARISON: CT brain 01/09/2018 MRI brain 04/13/2011, 10/28/2014 TECHNIQUE: Multiplanar imaging includes non-contrasted T1, T2, FLAIR, and diffusion with ADC map seq uences. Images stored on PACS. LIMITATIONS: Rapid acquisition motion attenuation pulse sequences FINDINGS: ANATOMY: No developmental anomalies. Normal vascular flow voids. Pituitary fossa normal. CSF SPACES: Prominent ventricles and sulci, stable. CEREBRUM: No MR evidence of acute large territory ischemic change, acute intracranial hemorrhage, mas s effect, or midline shift. Extensive hemispheric white matter small vessel disease is present, similar compared to previous stud ies. Multiple old lacunar infarcts in the right and left thalamus, bilateral basal ganglia, right ex ternal capsule. Old cortical and subcortical white matter infarct in the right posterior temporal/ o ccipital region, stable. POSTERIOR FOSSA: Small vessel ischemic change, moderate in the joel. Multiple tiny lacunar infarcts in the right cerebellar hemispheres. No MR evidence of acute posterior fossa ischemic change, hemorr bharath, mass effect or midline shift. Limited view of the mastoid air cells and inner ear structures/I AC's unremarkable. DIFFUSION IMAGING: Negative for acute or sub-acute infarction. ORBITS: No masses. Globes post cataract surgery. PARANASAL SINUSES: No fluid levels. Mucosa normal. OTHER: No other significant finding. IMPRESSION: Extensive small vessel disease with multiple old infarcts. No acute findings EVIDENCE OF ACUTE STROKE: NO. TECHNICAL DOCUMENTATION: JOB ID: [id number] [employer]- All Rights Reserved Reading location - IP/workstation name: [email or web address]
[2018-01-10] MEDS: FLUTICASONE/SALMETEROL DISKUS 250-50 MCG/DOSE IH SCH ×2 (14:09→21:04)
[2018-01-10] MEDS: TIOTROPIUM BROMIDE DPI 5 CAP/KIT (18 MCG/CAP) IH SCH (14:10)
[2018-01-10] MEDS: ATORVASTATIN CALCIUM 40 MG TABLET PO SCH (21:04)
[2018-01-10] MEDS: OXYCODONE-ACETAMINOPHEN 5-325 MG TABLET PO PRN (21:05)
[2018-01-10] MEDS ORDERED: CLONIDINE HCL 0.1 MG TABLET PO ONE (22:15)
--- NOTE | 2018-01-10 22:20 | PDOC PROGRESS REPORT ---
Subjective Progress Note for:: 01/10/18 Subjective:: MOY MELCHOR is a 82 year old female with a progressive mental status decline over the past 6 weeks, per her daughter at the bedside who provides care for her in the home. She has a past medical history that includes dementia, reported CVA, possible history of UTI in the past, chronic back pain and arthritis. Patient was recently evaluated here in the emergency department on the of this month and it was thought at that time that she may have medications contributing to her altered mental status. Psychiatry evaluated her and recommended starting buspirone, Depakote and decreasing her Cymbalta. Patient is on buprenorphine for chronic pain picture. MRI brain showing multiple small chronic stroke picture. Possibly consistent with vascular dementia picture described by daughter and patient. Patient and daughter are requesting placement in a memory care unit. D/C project planner was called and message was left on their phone about this. PT worked with patient today. Adjusting medications for BP control. . Reason For Visit: AMS Physical Exam Vital Signs: Temp Pulse Resp BP Pulse Ox 97.7 F 93 16 198/101 H 97 01/10/18 19:37 01/10/18 19:37 01/10/18 19:37 01/10/18 19:37 01/10/18 19:37 Intake & Output 01/09/18 01/10/18 01/11/18 06:59 06:59 06:59 Intake Total 500 Balance 500 Weight 48.4 kg General appearance: PRESENT: no acute distress, cooperative Head exam: PRESENT: atraumatic, normocephalic Eye exam: PRESENT: EOMI, PERRLA Ear exam: PRESENT: normal external ear exam. ABSENT: bleeding Mouth exam: PRESENT: moist. ABSENT: dry mucosa Neck exam: PRESENT: full ROM. ABSENT: JVD Respiratory exam: ABSENT: accessory muscle use, rales, rhonchi, wheezes Cardiovascular exam: PRESENT: RRR, +S1, +S2 Pulses: PRESENT: normal radial pulses, normal dorsalis pedis pul Vascular exam: PRESENT: normal capillary refill. ABSENT: pallor GI/Abdominal exam: PRESENT: soft. ABSENT: distended, rigid Extremities exam: ABSENT: calf tenderness, joint swelling Musculoskeletal exam: PRESENT: full ROM. ABSENT: ambulatory Neurological exam: PRESENT: alert, oriented to person, oriented to place, CN II- XII grossly intact. ABSENT: oriented to time Psychiatric exam: ABSENT: agitated, anxious Focused psych exam: ABSENT: catatonic, paranoid Skin exam: ABSENT: cyanosis, mottled Results Laboratory Results: 01/10/18 08:04 01/10/18 08:04 01/09/18 01/10/18 01/10/18 23:10 08:04 08:04 WBC 8.3 RBC 4.60 Hgb 13.9 Hct 40.6 MCV 88 MCH 30.2 MCHC 34.2 RDW 14.3 H Plt Count 264 Seg Neutrophils % 69.8 Lymphocytes % 21.0 Monocytes % 8.1 Eosinophils % 0.4 Basophils % 0.7 Absolute Neutrophils 5.8 Absolute Lymphocytes 1.7 Absolute Monocytes 0.7 Absolute Eosinophils 0.0 Absolute Basophils 0.1 Sodium 138.9 Potassium 3.2 L Chloride 101 Carbon Dioxide 24 Anion Gap 14 BUN 18 Creatinine 0.97 Est GFR ( Amer) > 60 Est GFR (Non-Af Amer) 55 L Glucose 102 Calcium 9.4 Ionized Calcium Su Phosphorus 3.0 Magnesium 1.5 L Total Bilirubin 1.1 AST 23 ALT 21 Alkaline Phosphatase 60 Total Protein 6.4 Albumin 3.5 Triglycerides 111 Cholesterol 157.09 LDL Cholesterol Direct 80 VLDL Cholesterol 22.0 HDL Cholesterol 50 Urine Color RYAN Urine Appearance CLOUDY Urine pH 5.0 Ur Specific [place] 1.013 Urine Protein NEGATIVE Urine Glucose (UA) NEGATIVE Urine Ketones NEGATIVE Urine Blood SMALL H Urine Nitrite POSITIVE H Ur Leukocyte Esterase MODERATE H Urine WBC (Auto) 9 Urine RBC (Auto) 4 01/10/18 08:04 WBC RBC Hgb Hct MCV MCH MCHC RDW Plt Count Seg Neutrophils % Lymphocytes % Monocytes % Eosinophils % Basophils % Absolute Neutrophils Absolute Lymphocytes Absolute Monocytes Absolute Eosinophils Absolute Basophils Sodium Potassium Chloride Carbon Dioxide Anion Gap BUN Creatinine Est GFR ( Amer) Est GFR (Non-Af Amer) Glucose Calcium Ionized Calcium Su 1.16 Phosphorus Magnesium Total Bilirubin AST ALT Alkaline Phosphatase Total Protein Albumin Triglycerides Cholesterol LDL Cholesterol Direct VLDL Cholesterol HDL Cholesterol Urine Color Urine Appearance Urine pH Ur Specific [place] Urine Protein Urine Glucose (UA) Urine Ketones Urine Blood Urine Nitrite Ur Leukocyte Esterase Urine WBC (Auto) Urine RBC (Auto) 01/09/18 01/09/18 01/10/18 18:20 19:28 01:15 Troponin I Cancelled 0.016 0.019 01/10/18 08:04 Troponin I 0.041 Impressions: Head CT 01/09/18 00:00 IMPRESSION: CHRONIC CHANGES OF ATROPHY AND MICROVASCULAR ISCHEMIA. NO ACUTE PROCESS. EVIDENCE OF ACUTE STROKE: NO. Chest X-Ray 01/09/18 17:41 IMPRESSION: Chronic lung changes with no acute cardiopulmonary disease. 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 No acute findings EVIDENCE OF ACUTE STROKE: NO. Assessment & Plan - Diagnosis (1) Acute encephalopathy Is this a current diagnosis for this admission?: Yes Plan: No acute stroke on MRI brain. does appear to have many small chronic strokes, possible vascular dementia picture. Clinical picture is Dementia with Delirium secondary to UTI. Continue rocephin for UTI treatment. restart ASA, continue atorvastatin. will titrate BP medications for control. (2) Dementia Is this a current diagnosis for this admission?: Yes Plan: MRI brain showing possible Vascular dementia picture. family wants d/c to be to a memory care unit SNF continue ASA, statin (3) UTI (urinary tract infection) Is this a current diagnosis for this admission?: Yes Plan: urine culture result pending continue Rocephin at present. (4) Chronic pain Is this a current diagnosis for this admission?: Yes Plan: continue prn pain medications for chronic pain (5) Hypertension Is this a current diagnosis for this admission?: Yes Plan: giving Hydralazine and labetalol with use parameters. Continue her home medications, increase her Metoprolol, adding low dose clonidine for BP control. (6) Hypercalcemia Is this a current diagnosis for this admission?: Yes Plan: has a history of primary hyperparathyroidism on paricalcitol. check ionized calcium level and continue home medication - Time Time Spent with patient: 15-24 minutes - Inpatient Certification Based on my medical assessment, after consideration of the patient's comorbidities, presenting symptoms, or acuity I expect that the services needed warrant INPATIENT care.: Yes I certify that my determination is in accordance with my understanding of Medicare's requirements for reasonable and necessary INPATIENT services [42 CFR 412.3e].: Yes Medical Necessity: Need Close Monitoring Due to Risk of Patient Decompensation
[2018-01-10] MEDS ORDERED: ASPIRIN 325 MG TABLET PO ONE (22:30)
[2018-01-11] MEDS: HALOPERIDOL LACTATE INJ 5 MG/1 ML VIAL IV PRN ×2 (03:51→09:24)
[2018-01-11 06:24] LABS: HEMATOCRIT 38.8 % (36.0-47.0); HEMOGLOBIN 13.3 g/dL (12.0-15.5); MEAN CORPUSCULAR HEMOGLOBIN 30.3 pg (27.0-33.4); MEAN CORPUSCULAR HGB CONC 34.2 g/dL (32.0-36.0); MEAN CORPUSCULAR VOLUME 89 fl (80-97); PLATELET COUNT 208 10^3/uL (150-450); RED BLOOD COUNT 4.37 10^6/uL (3.72-5.28); RED CELL DISTRIBUTION WIDTH 14.5 % (11.5-14.0); WHITE BLOOD COUNT 5.8 10^3/uL (4.0-10.5)
[2018-01-11 06:36] LABS: ALBUMIN 3.2 g/dL (3.5-5.0); ANION GAP 13 (5-19); BLOOD UREA NITROGEN 19 mg/dL (7-20); CALCIUM 9.3 mg/dL (8.4-10.2); CARBON DIOXIDE 25 mmol/L (22-30); CHLORIDE 102 mmol/L (98-107); GLUCOSE 107 mg/dL (75-110); POTASSIUM 3.3 mmol/L (3.6-5.0); SODIUM 139.7 mmol/L (137-145)
[2018-01-11] MEDS ORDERED: POTASSIUM CHLORIDE 10 MEQ CAPSULE.ER PO ONE (08:30)
[2018-01-11] MEDS: CEFTRIAXONE SODIUM 2,000 MG in NORMAL SALINE 100 ML IV SCH (09:03)
[2018-01-11] MEDS: HYDRALAZINE HCL INJ/PF 20 MG/1 ML SDV IV PRN ×2 (11:16→20:21)
[2018-01-11] MEDS: PARICALCITOL 1 MCG CAPSULE PO SCH (11:18)
[2018-01-11] MEDS: TIOTROPIUM BROMIDE DPI 5 CAP/KIT (18 MCG/CAP) IH SCH (11:19)
[2018-01-11] MEDS: METOPROLOL TARTRATE 50 MG TABLET PO SCH ×2 (11:20→21:22)
[2018-01-11] MEDS: DIVALPROEX SODIUM 500 MG TAB.SR.24H PO SCH ×2 (11:20→21:21)
[2018-01-11] MEDS: FLUTICASONE/SALMETEROL DISKUS 250-50 MCG/DOSE IH SCH ×2 (11:20→21:26)
[2018-01-11] MEDS: CLONIDINE HCL 0.1 MG TABLET PO SCH (11:20)
[2018-01-11] MEDS: ASPIRIN 325 MG TABLET PO SCH (11:21)
[2018-01-11] MEDS: BUSPIRONE HCL 10 MG TABLET PO SCH ×2 (11:21→21:21)
[2018-01-11] MEDS: DULOXETINE HCL 30 MG CAPSULE.DR PO SCH ×2 (11:21→21:21)
[2018-01-11] MEDS: DOCUSATE SODIUM 100 MG CAPSULE PO SCH (11:22)
[2018-01-11] MEDS: LOSARTAN POTASSIUM 50 MG TABLET PO SCH ×2 (11:23→21:22)
--- NOTE | 2018-01-11 19:23 | PDOC PROGRESS REPORT ---
Subjective Progress Note for:: 01/11/18 - seen on rounds this morning Subjective:: she tells me feels fine- has no complaints Reason For Visit: AMS Physical Exam Vital Signs: Temp Pulse Resp BP Pulse Ox 97.6 F 84 16 192/89 H 96 01/11/18 03:29 01/11/18 15:11 01/11/18 15:11 01/11/18 15:11 01/11/18 15:11 Intake & Output 01/10/18 01/11/18 01/12/18 06:59 06:59 06:59 Intake Total 500 200 Balance 500 200 Weight 106 lb 11.26 oz 114 lb 10.246 oz General appearance: PRESENT: no acute distress Head exam: PRESENT: atraumatic, normocephalic Eye exam: PRESENT: EOMI, PERRLA. ABSENT: scleral icterus Ear exam: PRESENT: normal external ear exam Respiratory exam: PRESENT: clear to auscultation alma, symmetrical Cardiovascular exam: PRESENT: +S1, +S2 Pulses: PRESENT: +2 pedal pulses bilateral GI/Abdominal exam: PRESENT: normal bowel sounds, soft. ABSENT: tenderness Musculoskeletal exam: ABSENT: tenderness Neurological exam: PRESENT: alert, awake, oriented to person, CN II-XII grossly intact Skin exam: PRESENT: dry, warm Results Laboratory Results: 01/11/18 05:22 01/11/18 05:22 01/09/18 01/11/18 01/11/18 23:10 05:22 05:22 WBC 5.8 RBC 4.37 Hgb 13.3 Hct 38.8 MCV 89 MCH 30.3 MCHC 34.2 RDW 14.5 H Plt Count 208 Sodium 139.7 Potassium 3.3 L Chloride 102 Carbon Dioxide 25 Anion Gap 13 BUN 19 Creatinine 1.01 Est GFR ( Amer) > 60 Est GFR (Non-Af Amer) 53 L Glucose 107 Calcium 9.3 Phosphorus 3.0 Albumin 3.2 L Urine Color RYAN Urine Appearance CLOUDY Urine pH 5.0 Ur Specific [place] 1.013 Urine Protein NEGATIVE Urine Glucose (UA) NEGATIVE Urine Ketones NEGATIVE Urine Blood SMALL H Urine Nitrite POSITIVE H Ur Leukocyte Esterase MODERATE H Urine WBC (Auto) 9 Urine RBC (Auto) 4 01/09/18 01/09/18 01/10/18 18:20 19:28 01:15 Troponin I Cancelled 0.016 0.019 01/10/18 08:04 Troponin I 0.041 Impressions: Head CT 01/09/18 00:00 IMPRESSION: CHRONIC CHANGES OF ATROPHY AND MICROVASCULAR ISCHEMIA. NO ACUTE PROCESS. EVIDENCE OF ACUTE STROKE: NO. Chest X-Ray 01/09/18 17:41 IMPRESSION: Chronic lung changes with no acute cardiopulmonary disease. 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 No acute findings EVIDENCE OF ACUTE STROKE: NO. Assessment & Plan - Diagnosis (1) Acute encephalopathy Is this a current diagnosis for this admission?: Yes Plan: history of dementia- spoke with daughter at bedside- she has been declining for last few months but she much more confused now- ?septic encephalopathy vs worsening dementia. she's alert and oriented x2 (2) Chronic pain Is this a current diagnosis for this admission?: Yes (3) Dementia Is this a current diagnosis for this admission?: Yes Plan: worsening for over 2 months now- but she has acute state now- likely due to her current infection- will monitor for now- daughter wants CM to try for rehab or SNF (4) Hypertension Is this a current diagnosis for this admission?: Yes (5) UTI (urinary tract infection) Is this a current diagnosis for this admission?: Yes Plan: c/w rocephin for now, UCx is growing G neg rods- ?E. Coli. will await sensitivities
[2018-01-11] MEDS: LORAZEPAM 0.5 MG TABLET PO PRN (20:24)
[2018-01-11] MEDS: ATORVASTATIN CALCIUM 40 MG TABLET PO SCH (21:21)
[2018-01-12] MEDS: HYDRALAZINE HCL INJ/PF 20 MG/1 ML SDV IV PRN ×2 (08:28→17:05)
[2018-01-12] MEDS: CEFTRIAXONE SODIUM 2,000 MG in NORMAL SALINE 100 ML IV SCH (08:28)
[2018-01-12] MEDS: LORAZEPAM 0.5 MG TABLET PO PRN (10:22)
[2018-01-12] MEDS: LOSARTAN POTASSIUM 50 MG TABLET PO SCH ×2 (11:43→21:22)
[2018-01-12] MEDS: CLONIDINE HCL 0.1 MG TABLET PO SCH (11:43)
[2018-01-12] MEDS: ASPIRIN 325 MG TABLET PO SCH (11:43)
[2018-01-12] MEDS: DULOXETINE HCL 30 MG CAPSULE.DR PO SCH ×2 (11:43→21:22)
[2018-01-12] MEDS: METOPROLOL TARTRATE 50 MG TABLET PO SCH ×2 (11:43→21:22)
[2018-01-12] MEDS: BUSPIRONE HCL 10 MG TABLET PO SCH ×2 (11:44→21:23)
[2018-01-12] MEDS: DIVALPROEX SODIUM 500 MG TAB.SR.24H PO SCH ×2 (11:44→21:22)
[2018-01-12] MEDS: TIOTROPIUM BROMIDE DPI 5 CAP/KIT (18 MCG/CAP) IH SCH (11:45)
[2018-01-12] MEDS: FLUTICASONE/SALMETEROL DISKUS 250-50 MCG/DOSE IH SCH ×2 (11:45→21:36)
[2018-01-12] MEDS: DOCUSATE SODIUM 100 MG CAPSULE PO SCH (11:45)
--- NOTE | 2018-01-12 12:03 | PDOC PROGRESS REPORT ---
Subjective Progress Note for:: 01/12/18 - seen on rounds this morning Subjective:: she tells me feels fine- has no acute complaints. daughter at bedside. Reason For Visit: AMS Physical Exam Vital Signs: Temp Pulse Resp BP Pulse Ox 98.0 F 89 20 133/68 H 96 01/12/18 10:59 01/12/18 10:59 01/12/18 10:59 01/12/18 10:59 01/12/18 10:59 Intake & Output 01/11/18 01/12/18 01/13/18 06:59 06:59 06:59 Intake Total 500 400 100 Balance 500 400 100 Weight 114 lb 10.246 oz 112 lb 14.027 oz General appearance: PRESENT: no acute distress, other - confused at times. ABSENT: mild distress, obese Head exam: PRESENT: atraumatic, normocephalic Eye exam: PRESENT: EOMI, PERRLA. ABSENT: scleral icterus Ear exam: PRESENT: normal external ear exam Mouth exam: PRESENT: neck supple, tongue midline Neck exam: ABSENT: tracheal deviation Respiratory exam: PRESENT: clear to auscultation alma, symmetrical Cardiovascular exam: PRESENT: +S1, +S2 Pulses: PRESENT: +2 pedal pulses bilateral GI/Abdominal exam: PRESENT: normal bowel sounds, soft. ABSENT: tenderness Extremities exam: ABSENT: pedal edema, +2 edema Neurological exam: PRESENT: alert, awake, oriented to person, oriented to place , CN II-XII grossly intact. ABSENT: oriented to time, oriented to situation Skin exam: PRESENT: dry, warm Results Laboratory Results: 01/11/18 05:22 01/09/18 23:10 Urine Color RYAN Urine Appearance CLOUDY Urine pH 5.0 Ur Specific [place] 1.013 Urine Protein NEGATIVE Urine Glucose (UA) NEGATIVE Urine Ketones NEGATIVE Urine Blood SMALL H Urine Nitrite POSITIVE H Ur Leukocyte Esterase MODERATE H Urine WBC (Auto) 9 Urine RBC (Auto) 4 01/09/18 23:10 Clean Catch Midstream Urine Culture - Final Escherichia Coli 01/09/18 01/09/18 01/10/18 18:20 19:28 01:15 Troponin I Cancelled 0.016 0.019 01/10/18 08:04 Troponin I 0.041 Impressions: Head CT 01/09/18 00:00 IMPRESSION: CHRONIC CHANGES OF ATROPHY AND MICROVASCULAR ISCHEMIA. NO ACUTE PROCESS. EVIDENCE OF ACUTE STROKE: NO. Chest X-Ray 01/09/18 17:41 IMPRESSION: Chronic lung changes with no acute cardiopulmonary disease. 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 No acute findings EVIDENCE OF ACUTE STROKE: NO. Assessment & Plan - Diagnosis (1) Acute encephalopathy Is this a current diagnosis for this admission?: Yes Plan: history of dementia- spoke with daughter at bedside- she has been declining for last few months but she much more confused now- ?septic encephalopathy vs worsening dementia. she's alert and oriented x2. (2) Chronic pain Is this a current diagnosis for this admission?: Yes (3) Dementia Is this a current diagnosis for this admission?: Yes Plan: worsening for over 2 months now- but she has acute state now- likely due to her current infection vs progression of underlying dementia- will monitor for now- daughter wants CM to try for rehab or SNF- CM aware and pending recommendations/bed placement (4) Hypertension Is this a current diagnosis for this admission?: Yes (5) UTI (urinary tract infection) Is this a current diagnosis for this admission?: Yes Plan: UCx is growing E. Coli- pretty much pansensitive. she has been on rocephin since admission - will switch her to bactrim tomorrow - total 5-7 days of antibiotics should be adequate. - Plan Summary Plan Summary: likely STR vs NH- awaiting CM
[2018-01-12 12:05] LABS: ANION GAP 12 (5-19); BLOOD UREA NITROGEN 18 mg/dL (7-20); CALCIUM 9.8 mg/dL (8.4-10.2); CARBON DIOXIDE 26 mmol/L (22-30); CHLORIDE 102 mmol/L (98-107); GLUCOSE 126 mg/dL (75-110); POTASSIUM 3.3 mmol/L (3.6-5.0); SODIUM 139.6 mmol/L (137-145)
[2018-01-12] MEDS ORDERED: POTASSIUM CHLORIDE 10 MEQ CAPSULE.ER PO ONE (13:21)
[2018-01-12] MEDS: HALOPERIDOL LACTATE INJ 5 MG/1 ML VIAL IV PRN (21:20)
[2018-01-12] MEDS: ATORVASTATIN CALCIUM 40 MG TABLET PO SCH (21:23)
[2018-01-13] MEDS: LORAZEPAM 0.5 MG TABLET PO PRN ×2 (01:56→13:33)
[2018-01-13 09:26] LABS: ANION GAP 11 (5-19); BLOOD UREA NITROGEN 17 mg/dL (7-20); CALCIUM 9.7 mg/dL (8.4-10.2); CARBON DIOXIDE 25 mmol/L (22-30); CHLORIDE 104 mmol/L (98-107); GLUCOSE 102 mg/dL (75-110); POTASSIUM 3.6 mmol/L (3.6-5.0); SODIUM 140.3 mmol/L (137-145)
[2018-01-13] MEDS: LOSARTAN POTASSIUM 50 MG TABLET PO SCH ×2 (09:58→21:56)
[2018-01-13] MEDS: BUSPIRONE HCL 10 MG TABLET PO SCH ×2 (09:58→21:56)
[2018-01-13] MEDS: DOCUSATE SODIUM 100 MG CAPSULE PO SCH (09:58)
[2018-01-13] MEDS: ASPIRIN 325 MG TABLET PO SCH (09:58)
[2018-01-13] MEDS: METOPROLOL TARTRATE 50 MG TABLET PO SCH ×2 (09:58→21:56)
[2018-01-13] MEDS: SULFAMETHOXAZOLE/TRIMETHOPRIM 800-160 MG TABLET PO SCH ×2 (09:58→17:53)
[2018-01-13] MEDS: FLUTICASONE/SALMETEROL DISKUS 250-50 MCG/DOSE IH SCH ×2 (09:59→21:55)
[2018-01-13] MEDS: TIOTROPIUM BROMIDE DPI 5 CAP/KIT (18 MCG/CAP) IH SCH (09:59)
[2018-01-13] MEDS: DULOXETINE HCL 30 MG CAPSULE.DR PO SCH ×2 (09:59→21:55)
[2018-01-13] MEDS: DIVALPROEX SODIUM 500 MG TAB.SR.24H PO SCH ×2 (09:59→21:55)
[2018-01-13] MEDS: CLONIDINE HCL 0.1 MG TABLET PO SCH (09:59)
[2018-01-13] MEDS: HYDRALAZINE HCL INJ/PF 20 MG/1 ML SDV IV PRN (11:58)
--- NOTE | 2018-01-13 15:06 | PDOC PROGRESS REPORT ---
Subjective Progress Note for:: 01/13/18 - Seen on rounds this morning Subjective:: Denies any acute complaints but does state she feels tired Patient was initially admitted for change in mental status and later found to have a UTI treated with Rocephin IV. She was transitioned to p.o. Bactrim for a few more days and will complete a 10-14 day course of antibiotics. Her altered mental status likely secondary to acute metabolic encephalopathy versus progression of his dementia. I have spoken with her daughter who believes that her mental status has been worsening for over the last few months but during admission her mental status was even worse. Her mental status and orientation waxes and wanes during the day. Daughter would like to have her in rehab or possibly nursing facility as she is unable to take care of her. I have discussed this with case management and they are working on placement. Otherwise she is cleared medically at this time. Reason For Visit: AMS Physical Exam Vital Signs: Temp Pulse Resp BP Pulse Ox 97.8 F 83 18 167/77 H 97 01/13/18 07:34 01/13/18 07:34 01/13/18 07:34 01/13/18 07:34 01/13/18 07:34 Intake & Output 01/12/18 01/13/18 01/14/18 06:59 06:59 06:59 Intake Total 400 505 Balance 400 505 Weight 112 lb 14.027 oz 113 lb 12.136 oz General appearance: PRESENT: no acute distress, thin Head exam: PRESENT: atraumatic, normocephalic Eye exam: PRESENT: EOMI, PERRLA. ABSENT: scleral icterus Mouth exam: PRESENT: neck supple, tongue midline Teeth exam: PRESENT: poor dentation Neck exam: ABSENT: tracheal deviation Respiratory exam: PRESENT: decreased breath sounds - Slightly decreased at the bases bilaterally, symmetrical Cardiovascular exam: PRESENT: +S1, +S2 Pulses: PRESENT: +2 pedal pulses bilateral GI/Abdominal exam: PRESENT: normal bowel sounds, soft. ABSENT: tenderness Extremities exam: ABSENT: joint swelling, pedal edema Neurological exam: PRESENT: alert, awake, oriented to person, oriented to place - Dr. small[place], oriented to time, CN II-XII grossly intact Skin exam: PRESENT: dry, warm Results Laboratory Results: 01/11/18 05:22 01/13/18 08:55 01/12/18 01/13/18 11:24 08:55 Sodium 139.6 140.3 Potassium 3.3 L 3.6 Chloride 102 104 Carbon Dioxide 26 25 Anion Gap 12 11 BUN 18 17 Creatinine 0.99 0.87 Est GFR ( Amer) > 60 > 60 Est GFR (Non-Af Amer) 54 L > 60 Glucose 126 H 102 Calcium 9.8 9.7 01/09/18 23:10 Clean Catch Midstream Urine Culture - Final Escherichia Coli 01/09/18 01/09/18 01/10/18 18:20 19:28 01:15 Troponin I Cancelled 0.016 0.019 01/10/18 08:04 Troponin I 0.041 Impressions: Head CT 01/09/18 00:00 IMPRESSION: CHRONIC CHANGES OF ATROPHY AND MICROVASCULAR ISCHEMIA. NO ACUTE PROCESS. EVIDENCE OF ACUTE STROKE: NO. Chest X-Ray 01/09/18 17:41 IMPRESSION: Chronic lung changes with no acute cardiopulmonary disease. 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 No acute findings EVIDENCE OF ACUTE STROKE: NO. Assessment & Plan - Diagnosis (1) Acute encephalopathy Is this a current diagnosis for this admission?: Yes (2) Chronic pain Is this a current diagnosis for this admission?: Yes (3) Dementia Is this a current diagnosis for this admission?: Yes (4) Hypertension Is this a current diagnosis for this admission?: Yes (5) UTI (urinary tract infection) Is this a current diagnosis for this admission?: Yes - Plan Summary Plan Summary: Contact CM about placement choices such as short-term rehab versus nursing facility per family wishes.
--- NOTE | 2018-01-13 17:57 | Progress Note ---
Provider Note Provider Note: called by nursing to tell me that 1 of 2 set of Blood cultures are now positive. this is very unusual since her blood cultures are almost 4 days old and now all of a sudden she's growing something. she's currently on bactrim- i am not sure if these results are real or not. asked nursing to draw new cultures. will monitor for now and see if she's spiking any fevers. will need to verify with micro if this is real or staph epiderm
[2018-01-13] MEDS: OXYCODONE-ACETAMINOPHEN 5-325 MG TABLET PO PRN (20:07)
[2018-01-13] MEDS: ATORVASTATIN CALCIUM 40 MG TABLET PO SCH (21:56)
[2018-01-14] MEDS: HALOPERIDOL LACTATE INJ 5 MG/1 ML VIAL IV PRN ×2 (05:49→20:47)
[2018-01-14] MEDS: ASPIRIN 325 MG TABLET PO SCH (10:55)
[2018-01-14] MEDS: BUSPIRONE HCL 10 MG TABLET PO SCH ×2 (10:55→22:23)
[2018-01-14] MEDS: FLUTICASONE/SALMETEROL DISKUS 250-50 MCG/DOSE IH SCH ×2 (10:55→22:23)
[2018-01-14] MEDS: PARICALCITOL 1 MCG CAPSULE PO SCH (10:56)
[2018-01-14] MEDS: LOSARTAN POTASSIUM 50 MG TABLET PO SCH ×2 (10:56→22:22)
[2018-01-14] MEDS: SULFAMETHOXAZOLE/TRIMETHOPRIM 800-160 MG TABLET PO SCH ×2 (10:56→18:19)
[2018-01-14] MEDS: CLONIDINE HCL 0.1 MG TABLET PO SCH (10:56)
[2018-01-14] MEDS: DIVALPROEX SODIUM 500 MG TAB.SR.24H PO SCH ×2 (10:56→22:22)
[2018-01-14] MEDS: DOCUSATE SODIUM 100 MG CAPSULE PO SCH (10:56)
[2018-01-14] MEDS: DULOXETINE HCL 30 MG CAPSULE.DR PO SCH ×2 (10:56→22:22)
[2018-01-14] MEDS: METOPROLOL TARTRATE 50 MG TABLET PO SCH ×2 (10:56→22:23)
--- NOTE | 2018-01-14 13:20 | PDOC PROGRESS REPORT ---
Subjective Progress Note for:: 01/14/18 Subjective:: Patient was seen in the room with her daughter. She tells me that she appears to be at her baseline. She is being treated for UTI with initially Rocephin and currently on Bactrim. She was noted to have a bacteremia on blood cultures from 815 with a gram-positive kb and repeat blood cultures are pending. Patient has been hemodynamically stable and at this point it appears that we will plan on discharge to assisted living once bed is available. Reason For Visit: AMS Physical Exam Vital Signs: Temp Pulse Resp BP Pulse Ox 97.7 F 68 18 172/49 H 99 01/14/18 07:19 01/14/18 07:19 01/14/18 07:19 01/14/18 07:19 01/14/18 07:19 Intake & Output 01/13/18 01/14/18 01/15/18 06:59 06:59 06:59 Intake Total 505 574 Balance 505 574 Weight 51.6 kg 51.1 kg General appearance: PRESENT: no acute distress, thin, other - elderly and frail Head exam: PRESENT: atraumatic Ear exam: PRESENT: normal external ear exam Neck exam: PRESENT: full ROM Respiratory exam: PRESENT: clear to auscultation alma. ABSENT: rales, rhonchi, wheezes Cardiovascular exam: PRESENT: RRR. ABSENT: diastolic murmur, rubs, systolic murmur Rectal exam: PRESENT: deferred Musculoskeletal exam: PRESENT: ambulatory Neurological exam: PRESENT: alert, awake, oriented to person, oriented to place Psychiatric exam: PRESENT: appropriate affect Results Laboratory Results: 01/11/18 05:22 01/13/18 08:55 01/09/18 01/09/18 01/10/18 18:20 19:28 01:15 Troponin I Cancelled 0.016 0.019 01/10/18 08:04 Troponin I 0.041 Impressions: Head CT 01/09/18 00:00 IMPRESSION: CHRONIC CHANGES OF ATROPHY AND MICROVASCULAR ISCHEMIA. NO ACUTE PROCESS. EVIDENCE OF ACUTE STROKE: NO. Chest X-Ray 01/09/18 17:41 IMPRESSION: Chronic lung changes with no acute cardiopulmonary disease. 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 No acute findings EVIDENCE OF ACUTE STROKE: NO. Assessment & Plan - Time Time Spent with patient: 15-24 minutes Medications reviewed and adjusted accordingly: Yes Anticipated discharge: Other - Assisted living Within: within 48 hours - Inpatient Certification Based on my medical assessment, after consideration of the patient's comorbidities, presenting symptoms, or acuity I expect that the services needed warrant INPATIENT care.: Yes Medical Necessity: Need Close Monitoring Due to Risk of Patient Decompensation, Risk of Complication if Not Cared For in Hospital - Plan Summary Plan Summary: E. coli UTI currently on p.o. Bactrim. We will continue for a 10 day course. 2. Acute encephalopathy likely secondary to acute infection. Patient does have underlying dementia. Family feels that she is at a baseline exam 3. Dementia chronic, underlying 4. Hypertension stable 5. Gram-negative bacteremia likely contaminant. Patient is hemodynamically stable. She has been in hospital since 01/09 no worsening of clinical status.
[2018-01-14] MEDS: LORAZEPAM 0.5 MG TABLET PO PRN (14:14)
[2018-01-14] MEDS: TIOTROPIUM BROMIDE DPI 5 CAP/KIT (18 MCG/CAP) IH SCH (14:14)
[2018-01-14] MEDS: ATORVASTATIN CALCIUM 40 MG TABLET PO SCH (22:22)
[2018-01-15] MEDS: HYDRALAZINE HCL INJ/PF 20 MG/1 ML SDV IV PRN (04:53)
[2018-01-15] MEDS: OXYCODONE-ACETAMINOPHEN 5-325 MG TABLET PO PRN (06:01)
[2018-01-15] MEDS: METOPROLOL TARTRATE 50 MG TABLET PO SCH ×2 (11:00→21:43)
[2018-01-15] MEDS: CLONIDINE HCL 0.1 MG TABLET PO SCH (11:00)
[2018-01-15] MEDS: BUSPIRONE HCL 10 MG TABLET PO SCH ×2 (11:01→21:43)
[2018-01-15] MEDS: SULFAMETHOXAZOLE/TRIMETHOPRIM 800-160 MG TABLET PO SCH ×2 (11:01→18:29)
[2018-01-15] MEDS: ASPIRIN 325 MG TABLET PO SCH (11:01)
[2018-01-15] MEDS: DULOXETINE HCL 30 MG CAPSULE.DR PO SCH ×2 (11:01→21:43)
[2018-01-15] MEDS: DIVALPROEX SODIUM 500 MG TAB.SR.24H PO SCH ×2 (11:01→21:43)
[2018-01-15] MEDS: LOSARTAN POTASSIUM 50 MG TABLET PO SCH ×2 (11:01→21:50)
[2018-01-15] MEDS: DOCUSATE SODIUM 100 MG CAPSULE PO SCH (11:01)
[2018-01-15] MEDS: TIOTROPIUM BROMIDE DPI 5 CAP/KIT (18 MCG/CAP) IH SCH (11:02)
[2018-01-15] MEDS: FLUTICASONE/SALMETEROL DISKUS 250-50 MCG/DOSE IH SCH ×2 (11:02→21:42)
--- NOTE | 2018-01-15 11:49 | PDOC DISCHARGE SUMMARY ---
General - Admit/Disc Date/PCP Admission Date/Primary Care Provider: 01/09/18 16:30 MARYCRUZ BRANNON MD Discharge Date: 01/15/18 - Additional Information Discharge Diet: Cardiac Discharge Activity: Activity As Tolerated Prescriptions: Hydrocodone/Acetaminophen [Hydrocodone-Acetamin 7.5-325] 1 tab PO Q6HP PRN #14 tablet PRN Reason: For Pain Lorazepam [Ativan 0.5 mg Tablet] 0.5 mg PO Q8HP PRN #14 tablet PRN Reason: FOR ANXIETY Home Medications: Ergocalciferol (Vitamin D2) [Drisdol 50,000 unit (1.25MG) Capsule] 50,000 unit PO FR@1000 01/09/18 Acetaminophen [Tylenol 325 mg Tablet] 650 mg PO Q4HP PRN tablet 01/15/18 Aspirin [Aspirin 325 mg Tablet] 325 mg PO DAILY tablet 01/15/18 Atorvastatin Calcium [Lipitor 40 mg Tablet] 40 mg PO QHS tablet 01/15/18 Buspirone HCl [Buspar 10 mg Tablet] 5 mg PO DAILY tablet 01/15/18 Buspirone HCl [Buspar 10 mg Tablet] 10 mg PO QHS tablet 01/15/18 Clonidine HCl [Catapres 0.1 mg Tablet] 0.1 mg PO DAILY tablet 01/15/18 Divalproex Sodium [Depakote ER 500 mg Tab.sr] 500 mg PO Q12 tab.sr.24h Docusate Sodium [Colace 100 mg Capsule] 100 mg PO DAILY capsule 01/15/18 Duloxetine HCl [Cymbalta 30 mg Capsule.] 30 mg PO Q12 capsule. 01/15/18 Fluticasone/Salmeterol [Advair 250-50 Diskus 14 Dose/Diskus] 1 inh IH Q12 inhaler 01/15/18 Hydrocodone/Acetaminophen [Hydrocodone-Acetamin 7.5-325] 1 tab PO Q6HP PRN #14 tablet 01/15/18 Lorazepam [Ativan 0.5 mg Tablet] 0.5 mg PO Q8HP PRN #14 tablet 01/15/18 Losartan Potassium [Cozaar 50 mg Tablet] 50 mg PO Q12 tablet 01/15/18 Metoprolol Tartrate [Lopressor 50 mg Tablet] 50 mg PO Q12 tablet 01/15/18 Paricalcitol [Zemplar 1 Mcg Capsule] 1 mcg PO BELA capsule 01/15/18 Polyethylene Glycol 3350 [Miralax Powder 17 gm/Packet] 17 gm PO DAILYP PRN powd.pack 01/15/18 Sulfamethoxazole/Trimethoprim [Septra-Ds 800-160 mg Tablet] 1 tab PO BID #10 tablet 01/15/18 Tiotropium [place] [Spiriva Handihaler 5 Cap/Kit (18 Mcg/Cap)] 1 cap IH DAILY kit 01/15/18 History of Present Illness History of Present Illness: MOY MELCHOR is a 82 year old female Physical Exam Vital Signs: Temp Pulse Resp BP Pulse Ox 97.7 F 76 18 140/96 H 96 01/15/18 07:17 01/15/18 07:17 01/15/18 07:17 01/15/18 07:17 01/15/18 07:17 Intake & Output 01/14/18 01/15/18 01/16/18 06:59 06:59 06:59 Intake Total 574 300 Balance 574 300 Weight 51.1 kg 50.6 kg General appearance: PRESENT: no acute distress Head exam: PRESENT: atraumatic, normocephalic Eye exam: PRESENT: conjunctiva pink, EOMI, PERRLA. ABSENT: scleral icterus Ear exam: PRESENT: normal external ear exam Mouth exam: PRESENT: moist, tongue midline Neck exam: ABSENT: carotid bruit, JVD, lymphadenopathy, thyromegaly Respiratory exam: PRESENT: clear to auscultation alma. ABSENT: rales, rhonchi, wheezes Cardiovascular exam: PRESENT: RRR. ABSENT: diastolic murmur, rubs, systolic murmur Pulses: PRESENT: normal dorsalis pedis pul Vascular exam: PRESENT: normal capillary refill GI/Abdominal exam: PRESENT: normal bowel sounds, soft. ABSENT: distended, guarding, mass, organolmegaly, rebound, tenderness Rectal exam: PRESENT: deferred Extremities exam: PRESENT: full ROM. ABSENT: calf tenderness, clubbing, pedal edema Neurological exam: PRESENT: alert, awake, oriented to person, oriented to place , CN II-XII grossly intact. ABSENT: motor sensory deficit Psychiatric exam: PRESENT: appropriate affect, normal mood. ABSENT: homicidal ideation, suicidal ideation Skin exam: PRESENT: dry, intact, warm. ABSENT: cyanosis, rash Results Laboratory Results: 01/11/18 05:22 01/13/18 08:55 01/09/18 18:20 Blood Blood Culture - Final NO GROWTH IN 5 DAYS 01/09/18 01/09/18 01/10/18 18:20 19:28 01:15 Troponin I Cancelled 0.016 0.019 01/10/18 08:04 Troponin I 0.041 Impressions: Head CT 01/09/18 00:00 IMPRESSION: CHRONIC CHANGES OF ATROPHY AND MICROVASCULAR ISCHEMIA. NO ACUTE PROCESS. EVIDENCE OF ACUTE STROKE: NO. Chest X-Ray 01/09/18 17:41 IMPRESSION: Chronic lung changes with no acute cardiopulmonary disease. 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 No acute findings EVIDENCE OF ACUTE STROKE: NO. Qualifiers - * PATIENT BEING DISCHARGED WITH ANY OF THE FOLLOWING DIAGNOSIS: No Plan Time Spent: Greater than 30 Minutes
[2018-01-15] MEDS ORDERED: TUBERCULIN,PURIF.PROT.DERIV. 5 TU/0.1 ML TEST 1 ML VIAL ID ONE ×2 (12:00→13:00)
[2018-01-15] MEDS ORDERED: LORAZEPAM 0.5 MG TABLET PO PRN (14:24)
[2018-01-15] MEDS ORDERED: OXYCODONE-ACETAMINOPHEN 5-325 MG TABLET PO PRN (14:24)
--- NOTE | 2018-01-15 15:36 | PDOC PROGRESS REPORT ---
Subjective Progress Note for:: 01/15/18 Subjective:: Patient was seen in the room with her daughter. She tells me that she appears to be at her baseline. She is being treated for UTI with initially Rocephin and currently on Bactrim. She was noted to have a bacteremia on blood cultures from 815 with a gram-positive kb and repeat blood cultures are pending. Patient has been hemodynamically stable and at this point it appears that we will plan on dischargehome in am as family has changed their mind Reason For Visit: AMS Physical Exam Vital Signs: Temp Pulse Resp BP Pulse Ox 98.2 F 72 16 178/72 H 97 01/15/18 10:59 01/15/18 14:00 01/15/18 10:59 01/15/18 10:59 01/15/18 10:59 Intake & Output 01/14/18 01/15/18 01/16/18 06:59 06:59 06:59 Intake Total 574 300 100 Balance 574 300 100 Weight 51.1 kg 50.6 kg General appearance: PRESENT: no acute distress, thin, well-nourished Head exam: PRESENT: atraumatic, normocephalic Teeth exam: PRESENT: poor dentation Neck exam: ABSENT: carotid bruit, JVD, lymphadenopathy, thyromegaly Respiratory exam: PRESENT: clear to auscultation alma. ABSENT: rales, rhonchi, wheezes Cardiovascular exam: PRESENT: RRR. ABSENT: diastolic murmur, rubs, systolic murmur GI/Abdominal exam: PRESENT: normal bowel sounds, soft. ABSENT: distended, guarding, mass, organolmegaly, rebound, tenderness Rectal exam: PRESENT: deferred Neurological exam: PRESENT: alert, awake, oriented to person, oriented to place Results Laboratory Results: 01/11/18 05:22 01/13/18 08:55 01/09/18 18:35 Blood Blood Culture - Final Corynebacterium Species 01/09/18 18:20 Blood Blood Culture - Final NO GROWTH IN 5 DAYS 01/09/18 01/09/18 01/10/18 18:20 19:28 01:15 Troponin I Cancelled 0.016 0.019 01/10/18 08:04 Troponin I 0.041 Impressions: Head CT 01/09/18 00:00 IMPRESSION: CHRONIC CHANGES OF ATROPHY AND MICROVASCULAR ISCHEMIA. NO ACUTE PROCESS. EVIDENCE OF ACUTE STROKE: NO. Chest X-Ray 01/09/18 17:41 IMPRESSION: Chronic lung changes with no acute cardiopulmonary disease. 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 No acute findings EVIDENCE OF ACUTE STROKE: NO. Assessment & Plan - Time Time Spent with patient: 15-24 minutes Medications reviewed and adjusted accordingly: Yes Anticipated discharge: Home Within: within 24 hours - Inpatient Certification Based on my medical assessment, after consideration of the patient's comorbidities, presenting symptoms, or acuity I expect that the services needed warrant INPATIENT care.: Yes Medical Necessity: Significant Comorbidiites Make Outpatient Treatment Too Risky , Need For Continuous Telemetry Monitoring - Plan Summary Plan Summary: E. coli UTI Continue Bactrim. We will continue for a 10 day course. 2. Acute encephalopathy likely secondary to acute infection. Patient does have underlying dementia. Family feels that she is at a baseline 3. Dementia chronic, underlying 4. Hypertension stable 5. Gram-negative bacteremia likely contaminant. Patient is hemodynamically stable. She has been in hospital since 01/09 no worsening of clinical status. 6. DC home in am if stable
[2018-01-15] MEDS: HALOPERIDOL LACTATE INJ 5 MG/1 ML VIAL IV PRN ×2 (16:33→21:43)
[2018-01-15] MEDS: ATORVASTATIN CALCIUM 40 MG TABLET PO SCH (21:43)
[2018-01-16] MEDS: BUSPIRONE HCL 10 MG TABLET PO SCH ×2 (09:45→21:05)
[2018-01-16] MEDS: DULOXETINE HCL 30 MG CAPSULE.DR PO SCH ×2 (09:46→21:06)
[2018-01-16] MEDS: METOPROLOL TARTRATE 50 MG TABLET PO SCH ×2 (09:46→21:06)
[2018-01-16] MEDS: ASPIRIN 325 MG TABLET PO SCH (09:46)
[2018-01-16] MEDS: DOCUSATE SODIUM 100 MG CAPSULE PO SCH (09:46)
[2018-01-16] MEDS: DIVALPROEX SODIUM 500 MG TAB.SR.24H PO SCH ×2 (09:46→21:05)
[2018-01-16] MEDS: LOSARTAN POTASSIUM 50 MG TABLET PO SCH ×2 (09:46→21:08)
[2018-01-16] MEDS: SULFAMETHOXAZOLE/TRIMETHOPRIM 800-160 MG TABLET PO SCH ×2 (09:46→17:55)
[2018-01-16] MEDS: CLONIDINE HCL 0.1 MG TABLET PO SCH (09:46)
[2018-01-16] MEDS: PARICALCITOL 1 MCG CAPSULE PO SCH (09:46)
[2018-01-16] MEDS: FLUTICASONE/SALMETEROL DISKUS 250-50 MCG/DOSE IH SCH ×2 (09:47→21:05)
[2018-01-16] MEDS: TIOTROPIUM BROMIDE DPI 5 CAP/KIT (18 MCG/CAP) IH SCH (09:47)
--- NOTE | 2018-01-16 11:01 | PDOC TRANSFER SUMMARY ---
General - Admit/Disc Date/PCP Admission Date/Primary Care Provider: 01/09/18 16:30 MARYCRUZ BRANNON MD Discharge Date: 01/16/18 - Discharge Diagnosis (1) Acute encephalopathy Is this a current diagnosis for this admission?: Yes (2) Chronic pain Is this a current diagnosis for this admission?: Yes (3) Dementia Is this a current diagnosis for this admission?: Yes (4) Hypertension Is this a current diagnosis for this admission?: Yes (5) UTI (urinary tract infection) Is this a current diagnosis for this admission?: Yes (6) Hypercalcemia Is this a current diagnosis for this admission?: Yes - Additional Information Discharge Diet: Cardiac Discharge Activity: Activity As Tolerated Prescriptions: Hydrocodone/Acetaminophen [Hydrocodone-Acetamin 7.5-325] 1 tab PO Q6HP PRN #14 tablet PRN Reason: For Pain Lorazepam [Ativan 0.5 mg Tablet] 0.5 mg PO Q8HP PRN #14 tablet PRN Reason: FOR ANXIETY Home Medications: Ergocalciferol (Vitamin D2) [Drisdol 50,000 unit (1.25MG) Capsule] 50,000 unit PO FR@1000 01/09/18 Acetaminophen [Tylenol 325 mg Tablet] 650 mg PO Q4HP PRN tablet 01/15/18 Aspirin [Aspirin 325 mg Tablet] 325 mg PO DAILY tablet 01/15/18 Atorvastatin Calcium [Lipitor 40 mg Tablet] 40 mg PO QHS tablet 01/15/18 Buspirone HCl [Buspar 10 mg Tablet] 5 mg PO DAILY tablet 01/15/18 Buspirone HCl [Buspar 10 mg Tablet] 10 mg PO QHS tablet 01/15/18 Clonidine HCl [Catapres 0.1 mg Tablet] 0.1 mg PO DAILY tablet 01/15/18 Divalproex Sodium [Depakote ER 500 mg Tab.sr] 500 mg PO Q12 tab.sr.24h Docusate Sodium [Colace 100 mg Capsule] 100 mg PO DAILY capsule 01/15/18 Duloxetine HCl [Cymbalta 30 mg Capsule.] 30 mg PO Q12 capsule. 01/15/18 Fluticasone/Salmeterol [Advair 250-50 Diskus 14 Dose/Diskus] 1 inh IH Q12 inhaler 01/15/18 Hydrocodone/Acetaminophen [Hydrocodone-Acetamin 7.5-325] 1 tab PO Q6HP PRN #14 tablet 01/15/18 Lorazepam [Ativan 0.5 mg Tablet] 0.5 mg PO Q8HP PRN #14 tablet 01/15/18 Losartan Potassium [Cozaar 50 mg Tablet] 50 mg PO Q12 tablet 01/15/18 Metoprolol Tartrate [Lopressor 50 mg Tablet] 50 mg PO Q12 tablet 01/15/18 Paricalcitol [Zemplar 1 Mcg Capsule] 1 mcg PO BELA capsule 01/15/18 Polyethylene Glycol 3350 [Miralax Powder 17 gm/Packet] 17 gm PO DAILYP PRN powd.pack 01/15/18 Sulfamethoxazole/Trimethoprim [Septra-Ds 800-160 mg Tablet] 1 tab PO BID #10 tablet 01/15/18 Tiotropium [place] [Spiriva Handihaler 5 Cap/Kit (18 Mcg/Cap)] 1 cap IH DAILY kit 01/15/18 History of Present Illness Admission Date/PCP: 01/09/18 16:30 MARYCRUZ BRANNON MD History of Present Illness: MOY MELCHOR is a 82 year old female with a progressive mental status decline over the past 6 weeks, per her daughter at the bedside who provides care for her in the home. She has a past medical history that includes dementia, CVA, possible history of UTI in the past , chronic back pain and arthritis. Patient was recently evaluated here in the emergency department on the of this month and it was thought at that time that she may have medications contributing to her altered mental status. Psychiatry evaluated her and recommended starting buspirone, Depakote and decreasing her Cymbalta. Patient is on buprenorphine for chronic pain picture. Patient has been described by her daughter at the bedside as a 6 stairstep decline in her mental status. She states that over the last 6 weeks she has become more combative and has significant difficulties in going to the bathroom. Has difficulties in self bathing. Prior to the recent recommendations of medication changes, patient was not changed on her medication per her family. Patient is displayed a significant fear of falling recently, and describes a wobbling gait inside the home. Describes her toes and feet hurting with her arthritic pain. This fear of falling has led her to not ambulating much according to the daughter at the bedside. The daughter describes her mentation as somewhat delusional. Hospital Course Hospital Course: Patient was admitted with confusion and thought to have acute encephalopathy. MRI reveals no evidence of acute stroke. She did have underlying dementia without behavioral disturbances. She was found to have a UTI with E. coli likely making her delirium worse. She was treated with IV antibiotics and then switched to oral Bactrim to complete her antibiotic course Patient had a bacteremia that was likely a contaminant with Corynebacterium and no further management is needed regarding this. Subsequent blood cultures have been negative Physical Exam Vital Signs: Temp Pulse Resp BP Pulse Ox 97.9 F 74 16 158/72 H 100 01/16/18 08:05 01/16/18 08:05 01/16/18 08:05 01/16/18 08:05 01/16/18 08:05 Intake & Output 01/15/18 01/16/18 01/17/18 06:59 06:59 06:59 Intake Total 300 400 Balance 300 400 Weight 50.6 kg 51.1 kg General appearance: PRESENT: no acute distress, thin Head exam: PRESENT: atraumatic, normocephalic Eye exam: PRESENT: conjunctiva pink, EOMI, PERRLA. ABSENT: scleral icterus Mouth exam: PRESENT: tongue midline Neck exam: ABSENT: carotid bruit, JVD, lymphadenopathy, thyromegaly Respiratory exam: PRESENT: clear to auscultation alma. ABSENT: rales, rhonchi, wheezes Cardiovascular exam: PRESENT: RRR. ABSENT: diastolic murmur, rubs, systolic murmur Pulses: PRESENT: normal dorsalis pedis pul Vascular exam: PRESENT: normal capillary refill GI/Abdominal exam: PRESENT: normal bowel sounds, soft. ABSENT: distended, guarding, mass, organolmegaly, rebound, tenderness Rectal exam: PRESENT: deferred Extremities exam: PRESENT: full ROM. ABSENT: calf tenderness, clubbing, pedal edema Neurological exam: PRESENT: alert, awake, oriented to place, oriented to situation. ABSENT: motor sensory deficit Psychiatric exam: ABSENT: homicidal ideation, suicidal ideation Skin exam: PRESENT: dry, intact, warm. ABSENT: cyanosis, rash Results Laboratory Results: 01/11/18 05:22 01/13/18 08:55 01/09/18 18:35 Blood Blood Culture - Final Corynebacterium Species 01/09/18 01/09/18 01/10/18 18:20 19:28 01:15 Troponin I Cancelled 0.016 0.019 01/10/18 08:04 Troponin I 0.041 Impressions: Head CT 01/09/18 00:00 IMPRESSION: CHRONIC CHANGES OF ATROPHY AND MICROVASCULAR ISCHEMIA. NO ACUTE PROCESS. EVIDENCE OF ACUTE STROKE: NO. Chest X-Ray 01/09/18 17:41 IMPRESSION: Chronic lung changes with no acute cardiopulmonary disease. 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 No acute findings EVIDENCE OF ACUTE STROKE: NO. Transfer Plan - Disposition Transfer Plan: Rehabilitation - Time Spent with Patient Time spent with patient: Greater than 30 Minutes Qualifiers - * PATIENT BEING DISCHARGED WITH ANY OF THE FOLLOWING DIAGNOSIS: No
[2018-01-16 21:05] VITALS: BP 152/79
[2018-01-16] MEDS: ATORVASTATIN CALCIUM 40 MG TABLET PO SCH (21:06)
== END 2018-01-16 21:46 | DRG 689 ==
LOC: 5 16:30 → 3S 20:16 → 3W 21:20
PROVIDERS: ADMIT Physician Assistant; ATTEND Physician Assistant
DX: N39.0 Urinary tract infection, site not specified (principal); G93.41 Metabolic encephalopathy; F01.50 Vascular dementia, unspecified severity, without behavioral disturbance, psychotic disturbance, mood disturbance, and anxiety; E83.52 Hypercalcemia; E78.5 Hyperlipidemia, unspecified; I10 Essential (primary) hypertension; I73.9 Peripheral vascular disease, unspecified; I25.10 Atherosclerotic heart disease of native coronary artery without angina pectoris; J44.9 Chronic obstructive pulmonary disease, unspecified; K21.9 Gastro-esophageal reflux disease without esophagitis; G89.29 Other chronic pain; B96.20 Unspecified Escherichia coli [E. coli] as the cause of diseases classified elsewhere; M19.90 Unspecified osteoarthritis, unspecified site; Z86.73 Personal history of transient ischemic attack (TIA), and cerebral infarction without residual deficits
CPT/HCPCS: 36415; 70450; 70551; 71045; 80048; 80053; 80061; 80069; 81001; 82330; 83690; 83735; 84100; 84439; 84443; 84484; 85025; 85027; 87040; 87077; 87086; 87088; 87186; 93005; 93010; G8978-GP; G8979-GP; G8987-GO; G8988-GO; G8989-GO; J0360; J0696; J1630; J3475; J3490

== ENCOUNTER → 2018-03-13 | Outpatient (CLI) | payer MEDICARE, OTHER ==
[2018-03-13 15:02] LABS: ANION GAP 6 (5-19); BLOOD UREA NITROGEN 42 mg/dL (7-20); CALCIUM 8.7 mg/dL (8.4-10.2); CARBON DIOXIDE 30 mmol/L (22-30); CHLORIDE 102 mmol/L (98-107); GLUCOSE 132 mg/dL (75-110); POTASSIUM 4.6 mmol/L (3.6-5.0); SODIUM 138.3 mmol/L (137-145)
== END ==
LOC: LAB 14:11
PROVIDERS: ATTEND Internal Medicine Nephrology
DX: N18.3 Chronic kidney disease, stage 3 (moderate) (principal); N25.81 Secondary hyperparathyroidism of renal origin
CPT/HCPCS: 36415; 80048; 83970